=== PATIENT | female | born 1930 | race Caucasian/White ===

== ENCOUNTER 2016-11-04 07:26 | Inpatient (IN) | payer OTHER, MEDICARE ==
[~2016-11-04] VITALS: Ht 152.4 cm; Wt 69.6 kg
[2016-11-04] VITALS (11 sets, daily range): BP systolic 82–157; BP diastolic 47–84; PULSE 80–118; TEMP 36.6–38.1; O2SAT 91–95; Ht 152.4 cm; Wt 69.6 kg
[~2016-11-04 07:26] MED LIST: ACET-1256 PO; ATEN50TA8 PO; CHOL100027 PO; COEN100C15 PO; FLUT0.15 NAE; LORA10TA44 PO; MECL25TA2 PO; MULT-506 PO; POLYSOL4 OP; PRLSR20 PO; PROB1TAB16 PO; PSYL58.611 PO; SIMV20TA2 PO
[2016-11-04] MEDS ORDERED: ONDANSETRON INJ 2 MG/ML 2 ML VIAL IV STA (07:43)
[2016-11-04] MEDS ORDERED: KETOROLAC TROMETHAMINE 30 MG/ML VIAL IV STA (07:43)
[2016-11-04] MEDS ORDERED: SODIUM CHLORIDE 0.9% 500ML 500 ML IV STA (07:43)
--- NOTE | 2016-11-04 07:44 | EMERGENCY ROOM VISIT NOTE ---
History Report prepared by Conrado: Almaz Callahan Under the Supervision of: Dr. Chapin Cotter M.D. First contact with patient: 07:28 Stated Complaint: NAUSEA History of Present Illness The patient is an 86 year old female who presents to the Emergency Room with complaints of persistent right flank pain that began around 0330 this morning. She currently rates her discomfort as a 6/10 in severity. The patient states that she has had kidney stones in the past and notes that her symptoms and discomfort feel similar today. She additionally associates nausea with her symptoms today. The patient denies taking anything for her symptoms today. She states that last week she was sick with a GI bug, noting that she had nausea , vomiting, and diarrhea, but has not felt ill since last week, until this morning. Source of History: patient Onset: 0330 this morning Position: other (right flank) Symptom Intensity: 6/10 Timing: other (persistent) Associated Symptoms: + nausea Review of Systems See HPI for pertinent positives & negatives. A total of 10 systems reviewed and were otherwise negative. Past Medical & Surgical Medical Problems: (1) Chronic pansinusitis (2) Essential hypertension (3) Hyperlipidemia (4) Renal and ureteric calculus (5) Senile osteoporosis (6) Snoring Surgical Problems: (1) H/O lithotripsy (2) History of tonsillectomy and adenoidectomy Family History Hypertension Kidney disease Kidney stones Social History Smoking Status: Never Smoker Alcohol Use: none Marital Status: Occupation Status: other Current/Historical Medications Scheduled Atenolol (Tenormin), 25 MG PO DAILY Meclizine Hcl (Antivert), 25 MG PO TID PRN Omeprazole (Prilosec), 20 MG PO DAILY Simvastatin (Zocor), 20 MG PO QPM Allergies Coded Allergies: Amoxicillin (Verified Adverse Reaction, Unknown, nauseated, 11/04/16) Clavulanic Acid (Verified Adverse Reaction, Unknown, nauseated, 11/04/16) Clindamycin (Verified Adverse Reaction, Unknown, GI SYMPTOMS, 11/04/16) Physical Exam Vital Signs Date Time Temp Pulse Resp B/P Pulse Ox O2 Delivery O2 Flow Rate FiO2 11/04/16 08:42 82 24 159/67 95 Room Air 11/04/16 08:15 77 11/04/16 07:34 37.0 93 18 161/89 96 Room Air Physical Exam GENERAL: Patient is a healthy-appearing well-nourished HEAD: Normocephalic atraumatic EYES: Ocular movements intact pupils equal and react to light OROPHARYNX mucous membranes are moist no exudates present no erythema or edema present NECK: Supple no nuchal rigidity CHEST: Good equal expansion LUNGS: Clear and equal to auscultation CARDIAC: Normal S1 and S2 ABDOMEN: Soft nontender no guarding BACK: No CVA tenderness EXTREMITIES: No pain upon palpation normal muscle strength in all groups no clubbing cyanosis or edema NEURO: Patient is following commands is answering questions appropriately. Alert and oriented x3 Cranial Nerves 2-12 grossly intact Medical Decision & Procedures ER Provider Diagnostic Interpretation: CT results as stated below per my review and radiologist interpretation: ABDOMEN AND PELVIS CT WITHOUT CONTRAST CT DOSE: 657.63 mGy.cm HISTORY: Pt c/o Rt sided flank pain TECHNIQUE: Multiaxial CT images of the abdomen and pelvis were performed without the use of intravenous and oral contrast according to the standard department stone protocol. COMPARISON STUDY: Abdomen and pelvis CT 05/04/2012. FINDINGS: Punctate calcified granuloma within the right lung base. Left basilar linear densities favor subsegmental atelectasis. There is a small hiatus hernia. No suspicious lytic or blastic osseous lesions. The unenhanced liver, gallbladder, adrenal glands are unremarkable. Stable 6 mm hypodense lesion within the body of the pancreas. 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 Multiple calcified splenic granulomas. Mild bladder wall thickening is likely due to underdistention. The uterus and adnexa are unremarkable. Small fat-containing bilateral inguinal hernias. Moderate well-formed stool within the rectum. Colonic diverticulosis. No definite bowel wall thickening or obstruction. There is a 7 mm obstructing stone within the distal right ureter on image 119. This results in moderate to severe right-sided hydroureteronephrosis. There is also right perinephric edema. Multiple bilateral renal calculi. No left-sided hydronephrosis. IMPRESSION: 1. A 7 mm obstructing stone within the distal right ureter resulting in moderate to severe right-sided hydroureteronephrosis. There is associated right perinephric edema. 2. Bilateral nephrolithiasis. 3. Additional findings as described above. Electronically signed by: Paramjit Griffin M.D. 11/04/2016 8:47 AM Laboratory Results 11/04/16 07:40 Red Blood Count 5.66, Mean Corpuscular Volume 87.5, Mean Corpuscular Hemoglobin 29.9, Mean Corpuscular Hemoglobin Concent 34.1, Mean Platelet Volume 10.3, Neutrophils (%) (Auto) 87.5, Lymphocytes (%) (Auto) 5.4, Monocytes (%) (Auto) 6.2, Eosinophils (%) (Auto) 0.2, Basophils (%) (Auto) 0.2, Neutrophils # (Auto) 22.29, Lymphocytes # (Auto) 1.39, Monocytes # (Auto) 1.59, Eosinophils # (Auto) 0.05, Basophils # (Auto) 0.05 11/04/16 07:40 Test 11/04/16 07:30 11/04/16 07:40 Urine Color YELLOW Urine Appearance CLOUDY (CLEAR) Urine pH 6.0 (4.5-7.5) Urine Specific [place] 1.014 (1.000-1.030) Urine Protein TRACE (NEG) Urine Glucose (UA) NEG (NEG) Urine Ketones NEG (NEG) Urine Occult Blood 1+ (NEG) Urine Nitrite POS (NEG) Urine Bilirubin NEG (NEG) Urine Urobilinogen NEG (NEG) Urine Leukocyte Esterase LARGE (NEG) Urine WBC (Auto) /hpf (0-5) Urine RBC (Auto) /hpf (0-4) Urine Hyaline Casts (Auto) /lpf (0-5) Urine Epithelial Cells (Auto) /lpf (0-5) Urine Bacteria (Auto) (NEG) Urine RBC 0-4 /hpf (0-4) Urine WBC >30 /hpf (0-5) Urine Epithelial Cells >30 /lpf (0-5) Urine Crystals (NONE PRSENT) Urine Calcium Oxalate Crystals PRESENT (NONE PRSENT) Urine Bacteria 3+ (NEG) White Blood Count 25.51 K/uL (4.8-10.8) Red Blood Count 5.66 M/uL (4.2-5.4) Hemoglobin 16.9 g/dL (12.0-16.0) Hematocrit 49.5 % (37-47) Mean Corpuscular Volume 87.5 fL (80-100) Mean Corpuscular Hemoglobin 29.9 pg (25-34) Mean Corpuscular Hemoglobin Concent 34.1 g/dl (32-36) Platelet Count 312 K/uL (130-400) Mean Platelet Volume 10.3 fL (7.4-10.4) Neutrophils (%) (Auto) 87.5 % Lymphocytes (%) (Auto) 5.4 % Monocytes (%) (Auto) 6.2 % Eosinophils (%) (Auto) 0.2 % Basophils (%) (Auto) 0.2 % Neutrophils # (Auto) 22.29 K/uL (1.4-6.5) Lymphocytes # (Auto) 1.39 K/uL (1.2-3.4) Monocytes # (Auto) 1.59 K/uL (0.11-0.59) Eosinophils # (Auto) 0.05 K/uL (0-0.5) Basophils # (Auto) 0.05 K/uL (0-0.2) RDW Standard Deviation 45.4 fL (36.4-46.3) RDW Coefficient of Variation 14.2 % (11.5-14.5) Immature Granulocyte % (Auto) 0.5 % Immature Granulocyte # (Auto) 0.14 K/uL (0.00-0.02) Erythrocyte Sedimentation Rate 12 mm/hr (0-21) Prothrombin Time 10.7 SECONDS (9.0-12.0) Prothromb Time International Ratio 1.0 (0.9-1.1) Anion Gap 11.0 mmol/L (3-11) Est Creatinine Clear Calc Drug Dose 34.3 ml/min Estimated GFR () 59.1 Estimated GFR (Non- 51.0 BUN/Creatinine Ratio 16.1 (10-20) Calcium Level 9.8 mg/dl (8.5-10.1) Total Bilirubin 0.8 mg/dl (0.2-1) Direct Bilirubin 0.1 mg/dl (0-0.2) Aspartate Amino Transf (AST/SGOT) 19 U/L (15-37) Alanine Aminotransferase (ALT/SGPT) 27 U/L (12-78) Alkaline Phosphatase 84 U/L (45-117) Troponin I < 0.015 ng/ml (0-0.045) C-Reactive Protein < 0.29 mg/dl (0-0.29) Total Protein 7.2 gm/dl (6.4-8.2) Albumin 3.7 gm/dl (3.4-5.0) Lipase 401 U/L (73-393) Labs reviewed by ED physician. Medications Administered Medications (Trade) Dose Ordered Sig/Davida Route Start Time Stop Time Status Last Admin Dose Admin Sodium Chloride (Nss 500ml) 500 ml @ 999 mls/hr Q31M STAT IV 11/04/16 07:43 11/04/16 08:13 DC 11/04/16 07:57 999 MLS/HR Ketorolac Tromethamine (Toradol Inj) 15 mg NOW STAT IV 11/04/16 07:43 11/04/16 07:46 DC 11/04/16 07:56 15 MG Ondansetron HCl (Zofran Inj) 4 mg NOW STAT IV 11/04/16 07:43 11/04/16 07:46 DC 11/04/16 07:56 4 MG Acetaminophen/ Hydrocodone Bitart ([place]ucker 5/325 Tab) 1 tab NOW STAT PO 11/04/16 07:46 11/04/16 07:47 DC 11/04/16 07:56 1 TAB Potassium Chloride (Georgina Ciel Elix) 80 meq NOW STAT PO 11/04/16 08:14 11/04/16 08:16 DC 11/04/16 08:37 80 MEQ Metoclopramide HCl (Reglan Inj) 10 mg NOW STAT IV 11/04/16 08:14 11/04/16 08:16 DC 11/04/16 08:37 10 MG Tamsulosin HCl (Flomax Cap) 0.4 mg NOW STAT PO 11/04/16 08:54 11/04/16 08:55 DC 11/04/16 09:07 0.4 MG Ceftriaxone Sodium (Rocephin Inj) 1 gm NOW STAT IV 11/04/16 08:56 11/04/16 08:57 DC 11/04/16 09:07 1 GM ECG Indication: other (nausea, flank pain) Rate (beats per minute): 88 Rhythm: normal sinus Findings: no acute ischemic change, no ectopy, other (Old inferior infarct) ED Course 0739: Past medical records reviewed. The patient was evaluated in room B2. A complete history and physical examination was performed. 0743: Ordered Zofran Inj 4 mg IV, Toradol Inj 15 mg IV, Sodium Chloride 500 ml @ 999 mls/hr IV. 0746: Ordered Tucker 5/325 Tab PO. 0814: Ordered Reglan Inj 10 mg IV, Potassium Chloride 80 meq PO. 0854: Ordered Flomax Cap 0.4 mg PO. 0856: Ordered Rocephin Inj 1 gm IV. 09: I reevaluated the patient and she is resting comfortably. I discussed the exam findings with her and I discussed the treatment plan. She verbalized complete understanding and agreement. She will be evaluated for further treatment. 913: I discussed the patients case with Amber Adam. He is going to evaluate the patient for further treatment. Medical Decision Differential diagnosis: Etiologies such as appendicitis, diverticulitis, PUD, biliary pathology, UTI, pancreatitis, obstruction, mesenteric ischemia, aortic pathology, infections, inflammatory bowel disease, renal colic, as well as others were entertained. This is an 86-year-old female who presents emergency department complaining of sudden onset of right flank pain. The patient has a history of kidney stones in the past. Due to the nature the patient's complaints an IV was established, patient given normal saline bolus. The patient does have a very large elevation in her white blood count at 25 in addition has a large amount of white blood cells in her urine. Given the patient's age I'm concerned that the stone may be infected and for this reason she was started on Rocephin as well as fluids in the emergency department. The patient does not feel well enough to be discharged home case was discussed with the hospitalist group who agreed to admit the patient. Patient was in agreement with the treatment plan. Consults Time Called: 909 Consulting Physician: Amber Adam Returned Call: 913 I discussed the patients case with Amber Adam. He is going to evaluate the patient for further treatment. Impression Primary Impression: Kidney stone Scribe Attestation The scribe's documentation has been prepared under my direction and personally reviewed by me in its entirety. I confirm that the note above accurately reflects all work, treatment, procedures, and medical decision making performed by me. Departure Information Dispostion Being Evaluated By Hospitalist Referrals Amador Friedman M.D. (PCP)
[2016-11-04] MEDS ORDERED: HYDROCODONE/ACETAMOPHEN 5/325MG TAB PO STA (07:46)
[2016-11-04 07:55] LABS: HEMATOCRIT 49.5 % (37-47); MEAN CELL VOLUME 87.5 fL (80-100); MEAN CORPUSCULAR HEMOGLOBIN 29.9 pg (25-34); MEAN CORPUSCULAR HGB CONC 34.1 g/dl (32-36); MEAN PLATELET VOLUME 10.3 fL (7.4-10.4); PLATELET COUNT 312 K/uL (130-400); RED BLOOD COUNT 5.66 M/uL (4.2-5.4); WHITE BLOOD COUNT 25.51 K/uL (4.8-10.8)
[2016-11-04 08:12] LABS: BLOOD UREA NITROGEN 16 mg/dl (7-18); GLUCOSE 128 mg/dl (70-99)
[2016-11-04 08:13] LABS: ALT/SGPT 27 U/L (12-78); AST/SGOT 19 U/L (15-37); BUN/CREATININE RATIO 16.1 (10-20); CALCIUM 9.8 mg/dl (8.5-10.1); CARBON DIOXIDE 26 mmol/L (21-32); CHLORIDE 108 mmol/L (98-107); POTASSIUM 2.8 mmol/L (3.5-5.1); SODIUM 145 mmol/L (136-145)
[2016-11-04] MEDS ORDERED: METOCLOPRAMIDE HCL INJ 5 MG/ML 2 ML VIAL IV STA (08:14)
[2016-11-04] MEDS ORDERED: POTASSIUM CHLORIDE 20 MEQ/15 ML UDC PO STA (08:14)
[2016-11-04 08:17] LABS: ALKALINE PHOSPHATASE 84 U/L (45-117); BASO % 0.2 %; BASO ABS # 0.05 K/uL (0-0.2); COMPLETE YES; EOS % 0.2 %; IG% 0.5 %; LYMPH % 5.4 %; LYMPH ABS # 1.39 K/uL (1.2-3.4); MONO % 6.2 %; NEUT % 87.5 %
[2016-11-04 08:31] LABS: URINE APPEARANCE CLOUDY (CLEAR); URINE BILIRUBIN NEG (NEG); URINE COLOR YELLOW; URINE NITRITE POS (NEG); URINE SPECIFIC GRAVITY 1.014 (1.000-1.030); UROBILINOGEN NEG (NEG)
[2016-11-04 08:34] LABS: MANUAL MICROSCOPIC REQUIRED? YES; REVIEW REQ? NO
--- NOTE | 2016-11-04 08:48 | DIAGNOSTIC IMAGING REPORT ---
ABDOMEN AND PELVIS CT WITHOUT CONTRAST CT DOSE: 657.63 mGy.cm HISTORY: Pt c/o Rt sided flank pain TECHNIQUE: Multiaxial CT images of the abdomen and pelvis were performed without the use of intravenous and oral contrast according to the standard department stone protocol. COMPARISON STUDY: Abdomen and pelvis CT 05/04/2012. FINDINGS: Punctate calcified granuloma within the right lung base. Left basilar linear densities favor subsegmental atelectasis. There is a small hiatus hernia. No suspicious lytic or blastic osseous lesions. The unenhanced liver, gallbladder, adrenal glands are unremarkable. Stable 6 mm hypodense lesion within the body of the pancreas. 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 Multiple calcified splenic granulomas. Mild bladder wall thickening is likely due to underdistention. The uterus and adnexa are unremarkable. Small fat-containing bilateral inguinal hernias. Moderate well-formed stool within the rectum. Colonic diverticulosis. No definite bowel wall thickening or obstruction. There is a 7 mm obstructing stone within the distal right ureter on image 119. This results in moderate to severe right-sided hydroureteronephrosis. There is also right perinephric edema. Multiple bilateral renal calculi. No left-sided hydronephrosis. IMPRESSION: 1. A 7 mm obstructing stone within the distal right ureter resulting in moderate to severe right-sided hydroureteronephrosis. There is associated right perinephric edema. 2. Bilateral nephrolithiasis. 3. Additional findings as described above. Electronically signed by: Paramjit Griffin M.D. 11/04/2016 8:47 AM
[2016-11-04] MEDS ORDERED: TAMSULOSIN HCL 0.4 MG CAP PO STA (08:54)
[2016-11-04] MEDS ORDERED: CEFTRIAXONE SOD INJ 1 GM ADDVIAL IV STA (08:56)
[2016-11-04 09:04] LABS: URINE RBC 0-4 /hpf (0-4); URINE WBC >30 /hpf (0-5)
[2016-11-04 09:05] LABS: URINE BACTERIA 3+ (NEG)
[2016-11-04] MEDS ORDERED: HYDROCODONE/ACETAMI 10/325 TAB PO PRN ×2 (09:30)
[2016-11-04 09:38] LABS: PROTHROMBIN TIME (PATIENT) 10.7 SECONDS (9.0-12.0)
[2016-11-04] MEDS ORDERED: KETOROLAC TROMETHAMINE 15 MG/ML VIAL IV PRN (09:45)
[2016-11-04] MEDS ORDERED: ACETAMINOPHEN 325 MG TAB PO PRN (09:45)
[2016-11-04] MEDS ORDERED: MAGNESIUM HYDROXIDE SUSP 30 ML UDC PO PRN (09:45)
[2016-11-04] MEDS ORDERED: ONDANSETRON INJ 2 MG/ML 2 ML VIAL IV PRN ×2 (09:45→14:00)
[2016-11-04] MEDS ORDERED: ALUMINUM/MAGNESIUM/SIMETH (MAALOX MAX) 30 ML UDC PO PRN (09:45)
[2016-11-04] MEDS ORDERED: POLYETHYLENE (MIRALAX) 17 GM PACK PO PRN ×2 (09:45→14:30)
--- NOTE | 2016-11-04 10:42 | DIAGNOSTIC IMAGING REPORT ---
Right upper quadrant ultrasound (LIVER) ABDOMEN LIMITED CLINICAL HISTORY: elevated lipase , nausea pain. Nausea. TECHNIQUE: Ultrasound COMPARISON STUDY: CT study dated 11/04/2016 FINDINGS: Fatty infiltration of liver.. Mild prominence of the common bile duct at 9 mm. Intrahepatic ducts are unremarkable. Gallbladder appears unremarkable. Right renal hydronephrosis with associated calcifications which have been described previously. IMPRESSION: 1. Mild prominence common bile duct at 9 mm. 2. Fatty infiltration of the liver. 3. Right renal hydronephrosis. 4. Normal gallbladder. Electronically signed by: Amador Mancilla M.D. 11/04/2016 10:40 AM
--- NOTE | 2016-11-04 10:48 | History and Physical ---
History & Physical Date & Time of Service: Nov 04, 2016 at 10:03 Chief Complaint: Nausea Primary Care Physician: Merlyn Ward D.O. History of Present Illness Source: patient This is an 86 y/o female with PMHx of HTN, Dyslipidemia and other problems as outlined below who presents to the ED c/o R flank pain that began early this morning. Pt reports that she woke up around 0330 with R flank pain that she describes as constant 6/10 pain that radiates to the R groin. Her sxs are assoc with mild nausea. She mentions she had a GI bug last week with N/V and diarrhea however she her sxs resolved over a week ago. She has a history of kidney stones requiring lithotripsy in the past. Pt denies fever/chills, diaphoresis, chest pain, palpitations, SOB, wheezing, abd pain, vomiting, constipation, diarrhea, dysuria, hematuria, urinary frequency, LE edema ,calf pain, lightheadedness/dizziness. In the ED, vitals are stable. Pt is afebrile with leukocytosis >25k. K+ 2.9. lipase 400. UA 3+ bacteria, + nitrites and + blood. CT abd/pelvis + obstructing 7mm calculi in distal R ureter with resulting mod- severe hydroureteronephrosis. Pt received IVF and IV abx in the ED. She appears hemodynamically stable. She will be admitted for further evaluation and treatment. Past Medical/Surgical History Medical Problems: (1) Chronic pansinusitis Status: Chronic (2) Essential hypertension Status: Chronic (3) Hyperlipidemia Status: Chronic (4) Senile osteoporosis Status: Chronic (5) Snoring Status: Chronic Surgical Problems: (1) H/O lithotripsy Status: Resolved (2) History of tonsillectomy and adenoidectomy Status: Resolved Family History Hypertension Kidney disease Kidney stones Social History Smoking Status: Never Smoker Alcohol Use: none Drug Use: none Marital Status: Housing status: lives alone Occupational Status: other Immunizations History of Influenza Vaccine: Yes History of Tetanus Vaccine?: Yes History of Pneumococcal: Yes History of Hepatitis B Vaccine: No Multi-Drug Resistant Organisms History of MDRO: No Allergies Coded Allergies: Amoxicillin (Verified Adverse Reaction, Unknown, nauseated, 11/04/16) Clavulanic Acid (Verified Adverse Reaction, Unknown, nauseated, 11/04/16) Clindamycin (Verified Adverse Reaction, Unknown, GI SYMPTOMS, 11/04/16) Home Medications Scheduled Atenolol (Tenormin), 25 MG PO DAILY Meclizine Hcl (Antivert), 25 MG PO TID PRN Omeprazole (Prilosec), 20 MG PO DAILY Simvastatin (Zocor), 20 MG PO QPM Review of Systems Constitutional: No chills, No fatigue, No fever, No sweats, No weakness Eyes: No worsening of vision Respiratory: No cough, No shortness of breath Cardiovascular: No chest pain, No claudication, No edema, No palpitations Abdomen: + nausea, + problem reported (R flank pain), No GI bleeding, No constipation, No diarrhea, No pain, No vomiting Musculoskeletal: No calf pain, No swelling Genitourinary - Female: No dysuria, No urinary frequency, No urinary incontinence, No urinary urgency Neurologic: No weakness Psychiatric: No depression symptoms Endocrine: No fatigue Hematologic / Lymphatic: No abnormal bleeding/bruising Integumentary: No new/changing skin lesions Physical Exam Vital Signs Date Time Temp Pulse Resp B/P Pulse Ox O2 Delivery O2 Flow Rate FiO2 11/04/16 09:56 95 Room Air 11/04/16 08:42 82 24 159/67 95 Room Air 11/04/16 08:15 77 11/04/16 07:34 37.0 93 18 161/89 96 Room Air General Appearance: WD/WN, no apparent distress, + pertinent finding (Pt is laying in bed with son-in-law at bedside ) Head: normocephalic, atraumatic Eyes: normal inspection ENT: hearing grossly normal Neck: supple Respiratory/Chest: chest non-tender, lungs clear, normal breath sounds, no respiratory distress Cardiovascular: regular rate, rhythm, no edema, no murmur Abdomen/GI: normal bowel sounds, non tender, soft Back: + right CVA tenderness Extremities/Musculoskelatal: normal inspection, no calf tenderness, no pedal edema Neurologic/Psych: alert, normal mood/affect, oriented x 3 Skin: normal color, warm/dry Diagnostics Laboratory Results Results Past 24 Hours Test 11/04/16 07:30 11/04/16 07:40 11/04/16 09:50 Range/Units Urine Color YELLOW Urine Appearance CLOUDY CLEAR Urine pH 6.0 4.5-7.5 Urine Specific [place] 1.014 1.000-1.030 Urine Protein TRACE NEG Urine Glucose (UA) NEG NEG Urine Ketones NEG NEG Urine Occult Blood 1+ NEG Urine Nitrite POS NEG Urine Bilirubin NEG NEG Urine Urobilinogen NEG NEG Urine Leukocyte Esterase LARGE NEG Urine WBC (Auto) 0-5 /hpf Urine RBC (Auto) 0-4 /hpf Urine Hyaline Casts (Auto) 0-5 /lpf Urine Epithelial Cells (Auto) 0-5 /lpf Urine Bacteria (Auto) NEG Urine RBC 0-4 0-4 /hpf Urine WBC >30 0-5 /hpf Urine Epithelial Cells >30 0-5 /lpf Urine Crystals NONE PRSENT Urine Calcium Oxalate Crystals PRESENT NONE PRSENT Urine Bacteria 3+ NEG White Blood Count 25.51 4.8-10.8 K/uL Red Blood Count 5.66 4.2-5.4 M/uL Hemoglobin 16.9 12.0-16.0 g/dL Hematocrit 49.5 37-47 % Mean Corpuscular Volume 87.5 80-100 fL Mean Corpuscular Hemoglobin 29.9 25-34 pg Mean Corpuscular Hemoglobin Concent 34.1 32-36 g/dl Platelet Count 312 130-400 K/uL Mean Platelet Volume 10.3 7.4-10.4 fL Neutrophils (%) (Auto) 87.5 % Lymphocytes (%) (Auto) 5.4 % Monocytes (%) (Auto) 6.2 % Eosinophils (%) (Auto) 0.2 % Basophils (%) (Auto) 0.2 % Neutrophils # (Auto) 22.29 1.4-6.5 K/uL Lymphocytes # (Auto) 1.39 1.2-3.4 K/uL Monocytes # (Auto) 1.59 0.11-0.59 K/uL Eosinophils # (Auto) 0.05 0-0.5 K/uL Basophils # (Auto) 0.05 0-0.2 K/uL RDW Standard Deviation 45.4 36.4-46.3 fL RDW Coefficient of Variation 14.2 11.5-14.5 % Immature Granulocyte % (Auto) 0.5 % Immature Granulocyte # (Auto) 0.14 0.00-0.02 K/uL Erythrocyte Sedimentation Rate 12 0-21 mm/hr Prothrombin Time 10.7 9.0-12.0 SECONDS Prothromb Time International Ratio 1.0 0.9-1.1 Sodium Level 145 136-145 mmol/L Potassium Level 2.8 3.5-5.1 mmol/L Chloride Level 108 98-107 mmol/L Carbon Dioxide Level 26 21-32 mmol/L Anion Gap 11.0 3-11 mmol/L Blood Urea Nitrogen 16 7-18 mg/dl Creatinine 1.00 0.60-1.20 mg/dl Est Creatinine Clear Calc Drug Dose 34.3 ml/min Estimated GFR () 59.1 Estimated GFR (Non- 51.0 BUN/Creatinine Ratio 16.1 10-20 Random Glucose 128 70-99 mg/dl Calcium Level 9.8 8.5-10.1 mg/dl Total Bilirubin 0.8 0.2-1 mg/dl Direct Bilirubin 0.1 0-0.2 mg/dl Aspartate Amino Transf (AST/SGOT) 19 15-37 U/L Alanine Aminotransferase (ALT/SGPT) 27 12-78 U/L Alkaline Phosphatase 84 45-117 U/L Troponin I < 0.015 0-0.045 ng/ml C-Reactive Protein < 0.29 0-0.29 mg/dl Total Protein 7.2 6.4-8.2 gm/dl Albumin 3.7 3.4-5.0 gm/dl Lipase 401 73-393 U/L Microbiology Results 11/04/16 Blood Culture, Received Pending 11/04/16 Blood Culture, Received Pending Diagnostic Radiology CT ABD/PELVIS IMPRESSION: 1. A 7 mm obstructing stone within the distal right ureter resulting in moderate to severe right-sided hydroureteronephrosis. There is associated right perinephric edema. 2. Bilateral nephrolithiasis. 3. Additional findings as described above EKG EKG: NSR at 88 bpm with no acute ischemic changes; no significant change when compared to EKG from 07/28/16 Impression Assessment and Plan OBSTRUCTING DISTAL R URETERAL CALCULI CAUSING HYDRONEPHROSIS pt presents with R flank pain assoc with mild nausea -admit to med/surg -pt is afebrile with leukocytosis >25k -CT abd/pelvis + obstructing 7mm calculi in distal R ureter with resulting mod- severe hydroureteronephrosis -UA 3+ bacteria, + nitrites and + blood -blood and urine cx-pending -check lactic acid, ESR and CRP -start IVF, Flomax and IV Rocephin -[place] PRN pain -strain urine -keep NPO for possible procedure -consult nephro, Dr. Mosquera-pending input -appears hemodynamically stable -monitor HYPOKALEMIA -K+ 2.9; ? if due to dehydration from recent GI illness -potassium given in ED -check stool for C.diff -monitor closely with prp MILDLY ELEVATED LIPASE -lipase 400 -LFTs WNL -obtain RUQ US -monitor daily HTN -BP slightly elevated; pt did not take medicine this morning -cont atenolol -monitor DYSLIPIDEMIA -hold statin due to elevated lipase DVT PROPHYLAXIS -SCDs only due to possible procedure CODE STATUS -DNR per discussion with patient upon admission. Patient has an advanced directive DISPO -Pt seen in collaboration with Dr. Lara. Please see her addendum for further details. Thanks! ATTENDING ADDENDUM : pt seen and examined, in agreement with above H&P 86 YO f admitted today with rt sided renal colic /flank pain started around 3 am today In the ED, vitals are stable. Pt is afebrile with leukocytosis >25k. K+ 2.9. lipase 400. UA 3+ bacteria, + nitrites and + blood. CT abd/pelvis + obstructing 7mm calculi in distal R ureter with resulting mod-severe hydroureteronephrosis. pt was taken to OR by Urology had ureteroscopy s/p rt sided ureteric stent placement per Operative note -had obstructive uropathy , cloudy urine after stent placement pt seen in room 285 -1 after returning form the ureteric stent procedure feels fine , rt flank pain has resolved, remains tachycardic , felt very weak and lightheaded while trying to go to bathroom no spiking of temp P/E: gen : elderly female, appears to be younger than her stated age , no apparent distress HEENT: sclera non icteric , PERRLA/EOMI Neck : no thyromegaly , trachea midline lungs : CTA abdomen: soft, non tender, minimum rt flank tenderness EXt : no rash or deformity neuro: no focal deficit A/P : severe sepsis: due to obstructed rt ureteric stone /UTI /pyelonephritis meet criteria -marked leukocytosis, tachycardia, elevated lactic acid -admitted to Tele abx per Sepsis protocol IV Azactam ( pt is allergic to amoxicillin -causes nausea /wants to avoid PCN ) /Vancomycin Urine , blood culture ordered IVF resuscitation lactic acid will be followed q 6hrs per sepsis protocol ID priscilla requested appreciate Urology help s/p rt ureteric stent placement for obstructed uropathy MARKED LEUKOCYTOSIS : possible due to above -UTi . infected ureteric stone need to R/o GI source stool for C diff ordered ( reports of diarrhea few days back ) no cough symptom , Cxray no evidence of pneumonia IV fluid increased to 150 ml /hr monitor in Tele daily CBC to be followed code status : DNR /DNI Level of Care Telemetry Advanced Directives Existing Advance Directive: Yes Existing Living Will: Yes Existing Power of Web Press Operator Assistant: Yes Resuscitation Status DO NOT RESUSCITATE VTE Prophylaxis VTE Risk Assessment Done? Y/N: Yes Risk Level: Moderate Given or contraindicated: T.E.D. Stockings, SCD's
--- NOTE | 2016-11-04 11:40 | Progress Note ---
Progress Note ATTENDING NOTE : 86 YO f admitted today with rt sided renal colic /flank pain started around 3 am today In the ED, vitals are stable. Pt is afebrile with leukocytosis >25k. K+ 2.9. lipase 400. UA 3+ bacteria, + nitrites and + blood. CT abd/pelvis + obstructing 7mm calculi in distal R ureter with resulting mod-severe hydroureteronephrosis. Lactic acid level elevated > 3 drawn at 10 am normal C reactive protein , ESR possible due to dehydration , pt reports of diarrhea few days back sepsis -due to possible UTI /obstructed uropathy ; need to R/o GI source stool for C diff ordered IV fluid increased to 150 ml /hr repeat lactic acid level in 6 hrs ( at 1600 ) cont to monitor pt will be upgraded to tele
[2016-11-04] MEDS: SODIUM CHLORIDE 0.9% 1000ML 1,000 ML IV SCH ×2 (12:16→19:39)
[2016-11-04] MEDS ORDERED: DEXAMETHASONE SOD INJ 4 MG/ML VIAL ONE (13:43)
[2016-11-04] MEDS ORDERED: LIDOCAINE HCL 2% 2 ML VIAL (20MG/ML) ONE (13:43)
[2016-11-04] MEDS ORDERED: ONDANSETRON INJ 2 MG/ML 2 ML VIAL ONE (13:43)
[2016-11-04] MEDS ORDERED: PROPOFOL IV EMULSION 10 MG/ML 20 ML VIAL IV ONE (13:43)
[2016-11-04] MEDS ORDERED: FENTANYL CITRATE INJ 50 MCG/1 ML 2 ML VIAL ONE (13:43)
[2016-11-04] MEDS ORDERED: MIDAZOLAM HCL 1 MG/ML 2ML VIAL ONE (13:43)
[2016-11-04] MEDS ORDERED: FENTANYL CITRATE INJ 50 MCG/1 ML 2 ML VIAL IV PRN (14:00)
[2016-11-04] MEDS ORDERED: MECLIZINE HCL 25 MG TAB PO PRN (14:00)
[2016-11-04] MEDS ORDERED: EpHEDrine SULFATE INJ 50 MG/ML AMP IV PRN (14:00)
[2016-11-04] MEDS ORDERED: ATROPINE SULFATE 0.1 MG/ML 5ML SYR IV PRN (14:00)
[2016-11-04] MEDS ORDERED: METOPROLOL TARTRATE 1 MG/ML VIAL ONE (14:05)
--- NOTE | 2016-11-04 14:47 | Urology Consultation ---
History General Date of Service: Nov 04, 2016. Chief Complaint: uti and obstructing righ tureteral stone Primary Care Physician: Merlyn Ward D.O. Pt seen a urologist before?: Yes If yes, why?: stone History of Present Illness I am asked by Yuni Espino and Dr Jose Alfredo Toth to evaluate and kevin patient for stone. She is admitted via ER with uti, high white count, and 11mm right distal stone with lots of stranding around kidney. She has a lactic acidosis as well. She is not febrile. She had ceftriaxone at 9am I have done stone surgery on her in past. Imaging Imaging: CT Laboratory Results Past 24 Hours Test 11/04/16 07:30 11/04/16 07:40 11/04/16 09:50 Range/Units Urine Color YELLOW Urine Appearance CLOUDY CLEAR Urine pH 6.0 4.5-7.5 Urine Specific [place] 1.014 1.000-1.030 Urine Protein TRACE NEG Urine Glucose (UA) NEG NEG Urine Ketones NEG NEG Urine Occult Blood 1+ NEG Urine Nitrite POS NEG Urine Bilirubin NEG NEG Urine Urobilinogen NEG NEG Urine Leukocyte Esterase LARGE NEG Urine WBC (Auto) 0-5 /hpf Urine RBC (Auto) 0-4 /hpf Urine Hyaline Casts (Auto) 0-5 /lpf Urine Epithelial Cells (Auto) 0-5 /lpf Urine Bacteria (Auto) NEG Urine RBC 0-4 0-4 /hpf Urine WBC >30 0-5 /hpf Urine Epithelial Cells >30 0-5 /lpf Urine Crystals NONE PRSENT Urine Calcium Oxalate Crystals PRESENT NONE PRSENT Urine Bacteria 3+ NEG White Blood Count 25.51 4.8-10.8 K/uL Red Blood Count 5.66 4.2-5.4 M/uL Hemoglobin 16.9 12.0-16.0 g/dL Hematocrit 49.5 37-47 % Mean Corpuscular Volume 87.5 80-100 fL Mean Corpuscular Hemoglobin 29.9 25-34 pg Mean Corpuscular Hemoglobin Concent 34.1 32-36 g/dl Platelet Count 312 130-400 K/uL Mean Platelet Volume 10.3 7.4-10.4 fL Neutrophils (%) (Auto) 87.5 % Lymphocytes (%) (Auto) 5.4 % Monocytes (%) (Auto) 6.2 % Eosinophils (%) (Auto) 0.2 % Basophils (%) (Auto) 0.2 % Neutrophils # (Auto) 22.29 1.4-6.5 K/uL Lymphocytes # (Auto) 1.39 1.2-3.4 K/uL Monocytes # (Auto) 1.59 0.11-0.59 K/uL Eosinophils # (Auto) 0.05 0-0.5 K/uL Basophils # (Auto) 0.05 0-0.2 K/uL RDW Standard Deviation 45.4 36.4-46.3 fL RDW Coefficient of Variation 14.2 11.5-14.5 % Immature Granulocyte % (Auto) 0.5 % Immature Granulocyte # (Auto) 0.14 0.00-0.02 K/uL Erythrocyte Sedimentation Rate 12 0-21 mm/hr Prothrombin Time 10.7 9.0-12.0 SECONDS Prothromb Time International Ratio 1.0 0.9-1.1 Sodium Level 145 136-145 mmol/L Potassium Level 2.8 3.5-5.1 mmol/L Chloride Level 108 98-107 mmol/L Carbon Dioxide Level 26 21-32 mmol/L Anion Gap 11.0 3-11 mmol/L Blood Urea Nitrogen 16 7-18 mg/dl Creatinine 1.00 0.60-1.20 mg/dl Est Creatinine Clear Calc Drug Dose 34.3 ml/min Estimated GFR () 59.1 Estimated GFR (Non- 51.0 BUN/Creatinine Ratio 16.1 10-20 Random Glucose 128 70-99 mg/dl Calcium Level 9.8 8.5-10.1 mg/dl Total Bilirubin 0.8 0.2-1 mg/dl Direct Bilirubin 0.1 0-0.2 mg/dl Aspartate Amino Transf (AST/SGOT) 19 15-37 U/L Alanine Aminotransferase (ALT/SGPT) 27 12-78 U/L Alkaline Phosphatase 84 45-117 U/L Troponin I < 0.015 0-0.045 ng/ml C-Reactive Protein < 0.29 0-0.29 mg/dl Total Protein 7.2 6.4-8.2 gm/dl Albumin 3.7 3.4-5.0 gm/dl Lipase 401 73-393 U/L Lactic Acid Level 3.8 0.4-2.0 mmol/L Microbiology Results 11/04/16 Blood Culture, Received Pending 11/04/16 Blood Culture, Received Pending Labs were reviewed and are within normal limits unless listed below. Labs are available in the chart and at [facility] Problem List Medical Problems: (1) Kidney stone Status: Acute Past History high cholesterol, hypertension Past Surgical History: tonsillectomy Family History Hypertension Kidney disease Kidney stones Social History Hx Tobacco Use In Past Year?: No Smoking: non-smoker Alcohol: never Drug use: none Marital status: Housing status: lives alone Occupation status: other Immunizations History of Influenza Vaccine: Yes History of Tetanus Vaccine?: Yes History of Pneumococcal: Yes History of Hepatitis B Vaccine: No History of MDRO No Allergies Coded Allergies: Amoxicillin (Verified Adverse Reaction, Unknown, nauseated, 11/04/16) Clavulanic Acid (Verified Adverse Reaction, Unknown, nauseated, 11/04/16) Clindamycin (Verified Adverse Reaction, Unknown, GI SYMPTOMS, 11/04/16) Medications Home Medications: Home Meds and Scripts Medications Dose Route/Sig Max Daily Dose Days Date Category Dose Instructions Prilosec (Omeprazole) 20 Mg Capcr 20 Mg PO DAILY 07/28/16 Reported Antivert (Meclizine Hcl) 25 Mg Tab 25 Mg PO TID PRN 05/04/12 Reported NEEDED FOR DIZZINESS Zocor (Simvastatin) 20 Mg Tab 20 Mg PO QPM 04/12/10 Reported Tenormin (Atenolol) 50 Mg Tab 25 Mg PO DAILY 04/12/10 Reported Inpatient Medications: Current Inpatient Medications Medications (Trade) Dose Ordered Sig/Davida Route Start Time Stop Time Status Last Admin Dose Admin Ceftriaxone Sodium 1 gm/ Dextrose 50 ml @ 100 mls/hr Q24H IV 11/05/16 09:30 11/14/16 09:29 Sodium Chloride (Nss 1000ml) 1,000 ml @ 150 mls/hr Q6H40M IV 11/04/16 11:20 11/04/16 12:16 150 MLS/HR Tamsulosin HCl (Flomax Cap) 0.4 mg QAM PO 11/05/16 09:00 12/05/16 08:59 Acetaminophen/ Hydrocodone Bitart (Mcdavid 10/325 Tab) 1 tab Q4 PRN PO 11/04/16 09:30 11/18/16 09:29 Acetaminophen/ Hydrocodone Bitart (Mcdavid 10/325 Tab) 2 tab Q4 PRN PO 11/04/16 09:30 11/18/16 09:29 Ketorolac Tromethamine (Toradol Inj) 15 mg Q6H PRN IV 11/04/16 09:45 11/09/16 09:44 Acetaminophen (Tylenol Tab) 650 mg Q4H PRN PO 11/04/16 09:45 12/04/16 09:44 Al Hydrox/Mg Hydrox/Simethicone (Maalox Max Susp) 15 ml Q4H PRN PO 11/04/16 09:45 12/04/16 09:44 Magnesium Hydroxide (Milk Of Magnesia Susp) 30 ml Q6H PRN PO 11/04/16 09:45 12/04/16 09:44 Ondansetron HCl (Zofran Inj) 4 mg Q6H PRN IV 11/04/16 09:45 12/04/16 09:44 Meclizine HCl (Antivert Tab) 25 mg TID PRN PO 11/04/16 14:00 12/04/16 13:59 Pantoprazole Sodium (Protonix Tab) 40 mg DAILY PO 11/05/16 09:00 12/05/16 08:59 Atenolol (Tenormin Tab) 25 mg DAILY PO 11/05/16 09:00 12/05/16 08:59 Docusate Sodium (coLACE CAP) 100 mg DAILY PRN PO 11/05/16 09:00 12/05/16 08:59 Fentanyl Citrate (Fentanyl Inj) 25 mcg Q5M PRN IV 11/04/16 14:00 11/04/16 19:00 Ondansetron HCl (Zofran Inj) 4 mg ONE PRN IV 11/04/16 14:00 11/04/16 19:00 Ephedrine Sulfate (EpHEDrine SULFATE INJ) 5 mg Q5M PRN IV 11/04/16 14:00 11/04/16 19:00 Atropine Sulfate (Atropine Sulfate 0.1MG/Ml Inj) 0.5 mg Q1M PRN IV 11/04/16 14:00 11/04/16 19:00 Polyethylene (Miralax Powder Packet) 17 gm DAILY PRN PO 11/04/16 14:30 12/04/16 14:29 Review of Systems Review of Systems Constitutional: No chills, No fever, No frequent headaches, No weight loss Eyes: No blurred vision Neurological: No dizzy, No passing out Endocrine: + tired/sluggish, + too cold, + too hot Gastrointestinal: + abdominal pain, + diarrhea, + indigestion, + nausea, + vomiting, No constipation Cardiovascular: No chest pain, No palpitations, No swelling ankles/feet Respiratory: No chronic cough, No shortness of breath Female : + kidney stones, No blood in urine, No frequent urination, No infections, No painful urination, No urinary retention Physical Exam Vital Signs: Vital Signs Past 12 Hours Date Time Temp Pulse Resp B/P Pulse Ox O2 Delivery O2 Flow Rate FiO2 11/04/16 12:00 36.6 80 18 95 11/04/16 10:52 36.6 80 18 126/68 95 Room Air 11/04/16 10:14 78 24 131/49 96 11/04/16 09:56 95 Room Air 11/04/16 08:42 82 24 159/67 95 Room Air 11/04/16 08:15 77 11/04/16 07:34 37.0 93 18 161/89 96 Room Air Physical Exam: General Appearance: WD/WN, no apparent distress, + obese, + pertinent finding ( appears much younger than her stated age) ENT: hearing grossly normal Neck: no adenopathy Respiratory/Chest: normal breath sounds, no respiratory distress, no accessory muscle use Cardiovascular: regular rate, rhythm Gastrointestinal: Abdomen: normal abdomen Bladder: normal bladder Renal: normal renal Liver: normal liver Extremities: non-tender, normal inspection, no pedal edema, no calf tenderness Neurologic/Psychiatric: alert, normal mood/affect, oriented x 3 Skin: normal color, warm/dry, no rash Lymphatic: no adenopathy Assessment & Plan Assessment & Plan obstructing right distal ureteral stone suspect uti behind obstruction needs urgent stent I explained surgery and she signed consent
[2016-11-04] MEDS ORDERED: BELLADONNA/OPIUM SUPP 60 MG SUPP PR ONE ×2 (15:12→15:39)
--- NOTE | 2016-11-04 15:23 | [facility] Operative Report ---
Operative Report Operative Date Nov 04, 2016. Pre-Operative Diagnosis uti and obstructing right ureteral stone Post-Operative Diagnosis same Procedure(s) Performed cysto right stent Surgeon digna Supervisor Press Room Surgeon(s) none Estimated Blood Loss 0mL Findings radio-lucent distal ureteral stone, cloudy urine in bladder and right kidney Fluids 400mL Specimens urine for culture Drains 6 fr 24 centimeter double J stent Anesthesia iv sedation Complication(s) None none Disposition Recovery Room / PACU Indications leukocytosis, obstructing stone, uti, lactic acidosis Description of Procedure Patient was sedated and placed in lithotomy position. Her genitals were prepped and draped in sterile fashion. Time out held with team. I placed a 21 fr rigid cystoscope to bladder. The urethra is unremarkable. Urine is grossly purulent. The UOs are lateral. I placed a road runner wire up right ureter and placed a 24 centimeter 6 Fr double J stent easily. There is brisk very cloudy efflux after placement. I left bladder empty and concluded case. I placed a belladonna and opium suppository for post-op pain. She transferred to recovery under my escort, in stable condition. Plan: Home in 1-2 days on abt once stable Pyridium for dysuria x 3 days flomax daily if tolerated oral pain meds as needed to OR next week for stone removal surgery. ASA 3 clean contaminated case 3 seconds fluoro ceftriaxone antibiotic at 9am in ER I attest to the content of the Intraoperative Record and any orders documented therein. Any exceptions are noted below.
--- NOTE | 2016-11-04 15:31 | DIAGNOSTIC IMAGING REPORT ---
KUB HISTORY: RT CYSTO URETERAL STENT FLUOROSCOPY TIME: 3 seconds. FINDINGS: A single fluoroscopic spot image. There is a guidewire seen within the expected location of the right ureter. No additional images submitted. IMPRESSION: Fluoroscopy provided for right ureteral stent placement. Electronically signed by: Paramjit Griffin M.D. 11/04/2016 3:29 PM
--- NOTE | 2016-11-04 15:50 | Anesthesiology Progress Note ---
Anesthesia Post Op Note Date & Time Nov 04, 2016 at 15:50 Vital Signs Pain Intensity: 1 Vital Signs Past 12 Hours Date Time Temp Pulse Resp B/P Pulse Ox O2 Delivery O2 Flow Rate FiO2 11/04/16 15:40 37 84 16 151/64 95 Room Air 11/04/16 15:30 84 16 146/66 100 Mask 10 11/04/16 15:20 37 85 16 140/65 97 Mask 10 11/04/16 12:00 36.6 80 18 95 11/04/16 10:52 36.6 80 18 126/68 95 Room Air 11/04/16 10:14 78 24 131/49 96 11/04/16 09:56 95 Room Air 11/04/16 08:42 82 24 159/67 95 Room Air 11/04/16 08:15 77 11/04/16 07:34 37.0 93 18 161/89 96 Room Air Notes Mental Status: alert / awake / arousable, participated in evaluation Pt Amnestic to Procedure: Yes Nausea / Vomiting: adequately controlled Pain: adequately controlled Airway Patency, RR, SpO2: stable & adequate BP & HR: stable & adequate Hydration State: stable & adequate Anesthetic Complications: no major complications apparent
[2016-11-04 16:00] LABS: ISTAT CREATININE 0.8 mg/dl (0.6-1.3); ISTAT HEMOGLOBIN 14.3 g/dl (12.0-16.0); ISTAT IONIZED CALCIUM 1.29 mmol/l (1.12-1.32)
[2016-11-04 16:58] LABS: BUN/CREATININE RATIO 15.7 (10-20); CALCIUM 9.5 mg/dl (8.5-10.1); CREATININE 1.1 mg/dl (0.60-1.20)
[2016-11-04 16:59] LABS: POTASSIUM 4.2 mmol/L (3.5-5.1)
[2016-11-04] MEDS ORDERED: VANCOMYCIN CONSULT ACTIVE SCH (19:08)
[2016-11-04] MEDS ORDERED: AZTREONAM CONSULT ACTIVE PRN ×2 (19:30)
[2016-11-04] MEDS: AZTREONAM IV 2,000 MG in DEXTROSE 5% 100ML 100 ML IV SCH (19:40)
[2016-11-04] MEDS ORDERED: VANCOMYCIN INJ 1,600 MG in SODIUM CHLORIDE 0.9% 500ML 500 ML IV SCH (20:00)
--- NOTE | 2016-11-04 20:32 | Pharmacy Progress Note ---
Pharmacy Antibiotic Consult Date of Service: Nov 04, 2016. Pharmacy Dosing Scope Pharmacy is consulted to initiate aztreonam and vancomycin IV dosing therapy, order appropriate labs and adjust drug dose/frequency. Subjective The patient is a 86 year old female admitted on Nov 04, 2016 at 09:27. Objective Height (Feet): 5 Height (Inches): 0.00 Weight (Kilograms): 66.100 Lab Results (24hrs): Laboratory Tests Test 11/04/16 07:40 11/04/16 16:25 BUN/Creatinine Ratio 16.1 15.7 Blood Urea Nitrogen 16 mg/dl 17 mg/dl Creatinine 1.00 mg/dl 1.10 mg/dl White Blood Count 25.51 K/uL Red Blood Count 5.66 M/uL Hemoglobin 16.9 g/dL Hematocrit 49.5 % Mean Corpuscular Volume 87.5 fL Mean Corpuscular Hemoglobin 29.9 pg Mean Corpuscular Hemoglobin Concent 34.1 g/dl Platelet Count 312 K/uL Mean Platelet Volume 10.3 fL Neutrophils (%) (Auto) 87.5 % Lymphocytes (%) (Auto) 5.4 % Monocytes (%) (Auto) 6.2 % Eosinophils (%) (Auto) 0.2 % Basophils (%) (Auto) 0.2 % Neutrophils # (Auto) 22.29 K/uL Lymphocytes # (Auto) 1.39 K/uL Monocytes # (Auto) 1.59 K/uL Eosinophils # (Auto) 0.05 K/uL Basophils # (Auto) 0.05 K/uL Micro Results: 11/04 blood x2 pending 11/04 clean catch urine x2 pending Recent Pertinent Medications Item Value Date Time Vancomycin HCl 532 ml @ 200 mls/hr 11/04/161999 1600 mg/Sodium TODAY@1999/IV Chloride Aztreonam 2000 mg/ 110 ml @ 100 mls/hr 11/04/16 1845 Dextrose Q8@0200,1000,1800/IV 11/04/16 1940 Ceftriaxone Sodium 1 gm 11/04/16 0856 (Rocephin Inj) NOW STAT/IV 11/04/16 0907 Assessment & Plan 86 yo female admitted with SIRS, probable urinary source (ureteral stone). S/P cystoscopy with stent today. Patient is intolerant of penicillins, so we are starting vancomycin and aztreonam pending culture results. Serum creatinine elevated above baseline. Estimated initial half-life ~23 hr, but renal function may be changing. Loading dose: vancomycin 1600 mg IV X 1 dose (~25 mg/kg), then will check random vancomycin level and redose when vancomycin level is <18 mcg/ml. Goal peak level estimate: between 25-40 mcg/mL. Goal trough level estimate: between 15-20 mcg/mL. Random level has been ordered for: 11/05/16 with am labs. Aztreonam 2 Gm q8h for complicated urinary tract infection. No dose adjustment needed for est CrCl greater than 30 ml/min, but will follow closely and adjust as needed. Pharmacy will continue to follow and will adjust dose/frequency as necessary. Thank you
[2016-11-04] MEDS ORDERED: DOCUSATE SODIUM 100 MG CAP PO SCH (21:00)
[2016-11-04 22:53] LABS: HEMATOCRIT 37.8 % (37-47); MEAN CELL VOLUME 86.1 fL (80-100); MEAN CORPUSCULAR HEMOGLOBIN 29.2 pg (25-34); MEAN CORPUSCULAR HGB CONC 33.9 g/dl (32-36); PLATELET COUNT 224 K/uL (130-400); RED BLOOD COUNT 4.39 M/uL (4.2-5.4); WHITE BLOOD COUNT 35.52 K/uL (4.8-10.8)
[2016-11-04 23:05] LABS: BUN/CREATININE RATIO 16.8 (10-20); CALCIUM 8.7 mg/dl (8.5-10.1); CREATININE 1.1 mg/dl (0.60-1.20); POTASSIUM 3.8 mmol/L (3.5-5.1)
[2016-11-05] MEDS: SODIUM CHLORIDE 0.9% 1000ML 1,000 ML IV SCH (01:10)
[2016-11-05] MEDS: AZTREONAM IV 2,000 MG in DEXTROSE 5% 100ML 100 ML IV SCH ×2 (02:22→10:37)
[2016-11-05 04:34] VITALS: BP 109/57; PULSE 80; TEMP 36.8; O2SAT 91
[2016-11-05 06:00] LABS: HEMATOCRIT 39.1 % (37-47); MEAN CELL VOLUME 87.9 fL (80-100); MEAN PLATELET VOLUME 10.3 fL (7.4-10.4); PLATELET COUNT 208 K/uL (130-400); RED BLOOD COUNT 4.45 M/uL (4.2-5.4); WHITE BLOOD COUNT 32.54 K/uL (4.8-10.8)
[2016-11-05 06:09] LABS: BUN/CREATININE RATIO 20.6 (10-20); CALCIUM 8.3 mg/dl (8.5-10.1); CREATININE 0.97 mg/dl (0.60-1.20); MAGNESIUM 1.7 mg/dl (1.8-2.4); POTASSIUM 3.8 mmol/L (3.5-5.1)
[2016-11-05] MEDS: SODIUM CHLOR 0.45% + 20MEQ KCL 1,000 ML IV SCH ×3 (06:27→21:45)
[2016-11-05] MEDS ORDERED: MAGNESIUM SULFATE 1GM / D5W 1 GM in PREMIXED IN D5W 100 ML IV ONE (06:30)
[2016-11-05 08:07] VITALS: BP 112/64; PULSE 81; TEMP 36.6; O2SAT 94
--- NOTE | 2016-11-05 08:44 | Anesthesiology Progress Note ---
Anesthesia Post Op Note Date & Time Nov 05, 2016 at 08:43 Vital Signs Pain Intensity: 0.0 Vital Signs Past 12 Hours Date Time Temp Pulse Resp B/P Pulse Ox O2 Delivery O2 Flow Rate FiO2 11/05/16 08:32 Room Air 11/05/16 08:07 36.6 81 18 112/64 94 Room Air 11/05/16 04:34 36.8 80 20 109/57 91 Room Air 11/05/16 04:00 Room Air 11/05/16 00:00 Room Air 11/04/16 23:43 114/68 11/04/16 23:36 36.9 87 18 82/47 91 Room Air 84/54 11/04/16 22:10 37.3 Notes Mental Status: alert / awake / arousable, participated in evaluation Pt Amnestic to Procedure: Yes Nausea / Vomiting: adequately controlled Pain: adequately controlled Airway Patency, RR, SpO2: stable & adequate BP & HR: stable & adequate Hydration State: stable & adequate Anesthetic Complications: no major complications apparent
[2016-11-05] MEDS: PANTOprazole SOD 40 MG TAB PO SCH (08:47)
[2016-11-05] MEDS: TAMSULOSIN HCL 0.4 MG CAP PO SCH (08:48)
[2016-11-05] MEDS ORDERED: DOCUSATE SODIUM 100 MG CAP PO PRN (09:00)
[2016-11-05] MEDS ORDERED: MAGNESIUM SULFATE 1GM / D5W 1 GM in PREMIXED IN D5W 100 ML IV STA (09:24)
[2016-11-05] MEDS ORDERED: CEFTRIAXONE SOD INJ 1 GM in DEXTROSE 5% ADD-VANTAGE 50ML 50 ML IV SCH (09:30)
[2016-11-05 10:57] LABS: HEMATOCRIT 40.9 % (37-47); MEAN CELL VOLUME 87.2 fL (80-100); MEAN CORPUSCULAR HEMOGLOBIN 28.8 pg (25-34); MEAN PLATELET VOLUME 10.1 fL (7.4-10.4); PLATELET COUNT 253 K/uL (130-400); RED BLOOD COUNT 4.69 M/uL (4.2-5.4); WHITE BLOOD COUNT 31.56 K/uL (4.8-10.8)
[2016-11-05 11:00] LABS: BASO % 0.2 %; BASO ABS # 0.06 K/uL (0-0.2); ECHINOCYTES 2+; EOS % 0.5 %; IG% 0.5 %; LYMPH % 3.4 %; LYMPH ABS # 1.08 K/uL (1.2-3.4); MONO % 4.8 %; NEUT % 90.6 %; TOXIC GRANULATION 1+; VACUOLIZATION 1+
--- NOTE | 2016-11-05 11:18 | Pharmacy Progress Note ---
Pharmacy Antibiotic Prog Note Date of Service: Nov 05, 2016. Subjective: The patient is currently receiving aztreonam 2 gm IV every 8 hours, and had loading dose of vancomycin 1600 mg IV yesterday evening. The patient is currently on day # 2 of aztreonam and vancomycin IV therapy. Objective: Height (Feet): 5 Height (Inches): 0.00 Weight (Kilograms): 68.400 Levels: Item Value Date Time Random Vancomycin Level 17.9 mcg/ml 11/05/16 0530 Lab Results (24hrs): Laboratory Tests Test 11/04/16 16:25 11/04/16 22:35 11/05/16 05:30 11/05/16 10:15 BUN/Creatinine Ratio 15.7 16.8 20.6 Blood Urea Nitrogen 17 mg/dl 19 mg/dl 20 mg/dl Creatinine 1.10 mg/dl 1.10 mg/dl 0.97 mg/dl White Blood Count 35.52 K/uL 32.54 K/uL 31.56 K/uL Red Blood Count 4.69 M/uL Hemoglobin 13.5 g/dL Hematocrit 40.9 % Mean Corpuscular Volume 87.2 fL Mean Corpuscular Hemoglobin 28.8 pg Mean Corpuscular Hemoglobin Concent 33.0 g/dl Platelet Count 253 K/uL Mean Platelet Volume 10.1 fL Neutrophils (%) (Auto) 90.6 % Lymphocytes (%) (Auto) 3.4 % Monocytes (%) (Auto) 4.8 % Eosinophils (%) (Auto) 0.5 % Basophils (%) (Auto) 0.2 % Neutrophils # (Auto) 28.58 K/uL Lymphocytes # (Auto) 1.08 K/uL Monocytes # (Auto) 1.50 K/uL Eosinophils # (Auto) 0.17 K/uL Basophils # (Auto) 0.06 K/uL Micro Results: 11/04 blood x2 pending 12/05 urine x2 pending Recent Pertinent Medications: Item Value Date Time Vancomycin HCl 270 ml @ 125 mls/hr 11/05/16 1200 1000 mg/Sodium DAILY@1200/IV Chloride Vancomycin HCl 532 ml @ 200 mls/hr 11/04/16 2000 1600 mg/Sodium TODAY@2000/IV 11/04/16 205 Chloride Aztreonam 2000 mg/ 110 ml @ 100 mls/hr 11/04/16 1845 Dextrose Q8@0200,1000,1800/IV 11/05/16 1037 Ceftriaxone Sodium 1 gm 11/04/16 0856 (Rocephin Inj) NOW STAT/IV 11/04/16 0907 Assessment & Plan: This drug level is: Therapeutic. Since renal function is improving, will start scheduled vancomycin and check level at steady state. I would certainly check a vancomycin level sooner if SCr rises again. Change to vancomycin 1000 mg IV every 24 hours. Goal trough level estimate: between 15-20 mcg/mL. Trough has been ordered for: 11/07/16 before 1200 dose. Continue same dose of aztreonam with improving renal function. Pharmacy will continue to follow and will adjust dose/frequency as necessary. Thank you
[2016-11-05 11:24] VITALS: BP 101/55; PULSE 69; TEMP 36.8; O2SAT 96
--- NOTE | 2016-11-05 11:40 | Medical Consult ---
Consultation Date of Consultation: Nov 05, 2016. Attending Physician: Lucia Lara M.D. Reason for Consultation: Sepsis History of Present Illness Patient is an 86-year-old female who initially presented to the emergency department with complaints of right flank pain that started a few hours prior to admission. The patient states that approximately 1 week prior to admission, she noted some nausea and vomiting for 1 day which seemed to subside. She thought she had GI bug at that time. She then began to have right-sided flank pain, and she does have history of kidney stone with lithotripsy In the past. She had also noted some pain radiating into her right groin, but she has not had any urinary symptoms. She states that she has not had any further nausea, vomiting, or diarrhea. She denies fever, sweats, or chills. She has not had any abdominal pain, chest pain, shortness of breath, headache, or hematuria. Since admission, patient did have a CT of the abdomen/pelvis, which did show a 7 mm obstructing renal stone in the right ureter with moderate to severe right- sided hydronephrosis and perinephric edema along with bilateral nephrolithiasis. Since that time, the patient has undergone a right ureteral stent placement. She also had a urine culture and blood cultures which are still pending at this time. The patient was noted to have leukocytosis of 25.51 on admission, and her white blood cell count is 31.56 this morning. It is also noted that her lactic acid was up to 4.04, and is still 2.5 today. Her ESR and CRP were normal. She did also have a temp to 38.1 C. She has since been afebrile today. She was placed on IV vancomycin and aztreonam due to multiple allergies. She states that her flank pain is improved since her procedure yesterday. Past Medical/Surgical History Medical Problems: (1) Kidney stone Status: Acute Medical Problems: (1) Chronic pansinusitis (2) Essential hypertension (3) Hyperlipidemia (4) Renal and ureteric calculus (5) Senile osteoporosis (6) Snoring Surgical Problems: (1) H/O lithotripsy (2) History of tonsillectomy and adenoidectomy Family History Hypertension Kidney disease Kidney stones Noncontributory Social History Smoking Status: Never Smoker Alcohol Use: none Drug Use: none Marital Status: Occupation Status: other Allergies Coded Allergies: Amoxicillin (Verified Adverse Reaction, Unknown, nauseated, 11/04/16) Clavulanic Acid (Verified Adverse Reaction, Unknown, nauseated, 11/04/16) Clindamycin (Verified Adverse Reaction, Unknown, GI SYMPTOMS, 11/04/16) Home Medications Reported Home Medications Medications Dose Route/Sig Max Daily Dose Days Date Category Dose Instructions Prilosec (Omeprazole) 20 Mg Capcr 20 Mg PO DAILY 07/28/16 Reported Antivert (Meclizine Hcl) 25 Mg Tab 25 Mg PO TID PRN 05/04/12 Reported NEEDED FOR DIZZINESS Zocor (Simvastatin) 20 Mg Tab 20 Mg PO QPM 04/12/10 Reported Tenormin (Atenolol) 50 Mg Tab 25 Mg PO DAILY 04/12/10 Reported Current Inpatient Medications Current Inpatient Medications Medications (Trade) Dose Ordered Sig/Davida Route Start Time Stop Time Status Last Admin Dose Admin Tamsulosin HCl (Flomax Cap) 0.4 mg QAM PO 11/05/16 09:00 12/05/16 08:59 11/05/16 08:48 0.4 MG Acetaminophen/ Hydrocodone Bitart ([place] 10/325 Tab) 1 tab Q4 PRN PO 11/04/16 09:30 11/18/16 09:29 Acetaminophen/ Hydrocodone Bitart ([place] 10/325 Tab) 2 tab Q4 PRN PO 11/04/16 09:30 11/18/16 09:29 Ketorolac Tromethamine (Toradol Inj) 15 mg Q6H PRN IV 11/04/16 09:45 11/09/16 09:44 Acetaminophen (Tylenol Tab) 650 mg Q4H PRN PO 11/04/16 09:45 12/04/16 09:44 11/04/16 20:53 650 MG Al Hydrox/Mg Hydrox/Simethicone (Maalox Max Susp) 15 ml Q4H PRN PO 11/04/16 09:45 12/04/16 09:44 Magnesium Hydroxide (Milk Of Magnesia Susp) 30 ml Q6H PRN PO 11/04/16 09:45 12/04/16 09:44 Ondansetron HCl (Zofran Inj) 4 mg Q6H PRN IV 11/04/16 09:45 12/04/16 09:44 Meclizine HCl (Antivert Tab) 25 mg TID PRN PO 11/04/16 14:00 12/04/16 13:59 Pantoprazole Sodium (Protonix Tab) 40 mg DAILY PO 11/05/16 09:00 12/05/16 08:59 11/05/16 08:47 40 MG Atenolol (Tenormin Tab) 25 mg DAILY PO 11/05/16 09:00 12/05/16 08:59 11/05/16 08:46 25 MG Docusate Sodium (coLACE CAP) 100 mg DAILY PRN PO 11/05/16 09:00 12/05/16 08:59 Polyethylene 17 gm 17 gm DAILY PRN PO 11/04/16 14:30 12/04/16 14:29 Aztreonam/Dextrose (Azactam IV/D5 100ml) 110 ml @ 100 mls/hr Q8@0200,1000,1800 IV 11/04/16 18:45 11/14/16 18:44 11/05/16 10:37 100 MLS/HR Vancomycin HCl (Consult) 1 ea UD N/A 11/04/16 19:08 12/04/16 19:07 Aztreonam 1 ea 1 ea UD PRN N/A 11/04/16 19:30 12/04/16 19:29 Potassium Chloride/Sodium Chloride 1,000 ml @ 150 mls/hr Q6H40M IV 11/05/16 06:30 12/05/16 06:29 11/05/16 06:27 150 MLS/HR Vancomycin HCl/ Sodium Chloride (Vancomycin Inj/ Nss 250ml) 270 ml @ 125 mls/hr DAILY@1200 IV 11/05/16 12:00 11/14/16 19:00 Review of Systems Constitutional: No chills, No fever, No sweats Eyes: No worsening of vision ENT: No hearing loss Respiratory: No cough, No shortness of breath Cardiovascular: No chest pain Abdomen: + 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), + problem reported (right flank pain), + vomiting ([employer]CHNICIAN- one episode- none since), No diarrhea, No pain Musculoskeletal: No joint pain Genitourinary - Female: No dysuria, No urinary frequency Integumentary: No itch, No rash Physical Exam Date Time Temp Pulse Resp B/P Pulse Ox O2 Delivery O2 Flow Rate FiO2 11/05/16 11:24 36.8 69 16 101/55 96 Room Air 11/05/16 08:32 Room Air 11/05/16 08:07 36.6 81 18 112/64 94 Room Air 11/05/16 04:34 36.8 80 20 109/57 91 Room Air 11/05/16 04:00 Room Air 11/05/16 00:00 Room Air 11/04/16 23:43 114/68 11/04/16 23:36 36.9 87 18 82/47 91 Room Air 84/54 11/04/16 22:10 37.3 11/04/16 20:00 Room Air 11/04/16 19:45 38.1 105 18 101/62 91 Room Air 11/04/16 18:00 37.4 118 18 120/65 92 11/04/16 17:10 37.1 117 18 128/70 95 Room Air 11/04/16 16:30 37.0 105 20 157/58 93 Room Air 11/04/16 16:00 Room Air 11/04/16 16:00 37.3 89 16 150/84 94 Room Air 11/04/16 15:40 37 84 16 151/64 95 Room Air 11/04/16 15:30 84 16 146/66 100 Mask 10 11/04/16 15:20 37 85 16 140/65 97 Mask 10 11/04/16 12:00 36.6 80 18 95 General Appearance: WD/WN, no apparent distress Head: normocephalic, atraumatic Eyes: normal inspection, sclerae normal ENT: hearing grossly normal Neck: supple, trachea midline Respiratory/Chest: chest non-tender, normal breath sounds, no respiratory distress, no accessory muscle use, + crackles (mild right base) Cardiovascular: regular rate, rhythm, no murmur Abdomen/GI: normal bowel sounds Back: normal inspection Extremities/Musculoskelatal: normal inspection Neurologic/Psych: alert, normal mood/affect Skin: normal color, warm/dry, no rash Laboratory Results ABDOMEN AND PELVIS CT WITHOUT CONTRAST CT DOSE: 657.63 mGy.cm HISTORY: Pt c/o Rt sided flank pain TECHNIQUE: Multiaxial CT images of the abdomen and pelvis were performed without the use of intravenous and oral contrast according to the standard department stone protocol. COMPARISON STUDY: Abdomen and pelvis CT 05/04/2012. FINDINGS: Punctate calcified granuloma within the right lung base. Left basilar linear densities favor subsegmental atelectasis. There is a small hiatus hernia. No suspicious lytic or blastic osseous lesions. The unenhanced liver, gallbladder, adrenal glands are unremarkable. Stable 6 mm hypodense lesion within the body of the pancreas. 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 Multiple calcified splenic granulomas. Mild bladder wall thickening is likely due to underdistention. The uterus and adnexa are unremarkable. Small fat-containing bilateral inguinal hernias. Moderate well-formed stool within the rectum. Colonic diverticulosis. No definite bowel wall thickening or obstruction. There is a 7 mm obstructing stone within the distal right ureter on image 119. This results in moderate to severe right-sided hydroureteronephrosis. There is also right perinephric edema. Multiple bilateral renal calculi. No left-sided hydronephrosis. IMPRESSION: 1. A 7 mm obstructing stone within the distal right ureter resulting in moderate to severe right-sided hydroureteronephrosis. There is associated right perinephric edema. 2. Bilateral nephrolithiasis. 3. Additional findings as described above. Last 24 Hours Test 11/04/16 15:21 11/04/16 16:25 11/04/16 22:35 11/05/16 05:30 Bedside Hemoglobin 14.3 g/dl Bedside Hematocrit 42 % Bedside Sodium 147 mEq/L Bedside Potassium 4.1 mEq/L Bedside Chloride 111 mEq/L Bedside Total CO2 21 mEq/l Anion Gap 20.0 mmol/L 11.0 mmol/L 11.0 mmol/L 12.0 mmol/L Bedside Blood Urea Nitrogen 16 mg/dl Bedside Creatinine 0.8 mg/dl Bedside Glucose (other) 112 mg/dl Bedside Ionized Calcium (Anthony) 1.29 mmol/l Sodium Level 148 mmol/L 145 mmol/L 146 mmol/L Potassium Level 4.2 mmol/L 3.8 mmol/L 3.8 mmol/L Chloride Level 113 mmol/L 114 mmol/L 114 mmol/L Carbon Dioxide Level 24 mmol/L 20 mmol/L 20 mmol/L Blood Urea Nitrogen 17 mg/dl 19 mg/dl 20 mg/dl Creatinine 1.10 mg/dl 1.10 mg/dl 0.97 mg/dl Est Creatinine Clear Calc Drug Dose 31.1 ml/min 31.1 ml/min 35.3 ml/min Estimated GFR () 52.6 52.6 61.3 Estimated GFR (Non- 45.4 45.4 52.9 BUN/Creatinine Ratio 15.7 16.8 20.6 Random Glucose 112 mg/dl 120 mg/dl 100 mg/dl Lactic Acid Level 4.0 mmol/L 3.1 mmol/L 2.7 mmol/L Calcium Level 9.5 mg/dl 8.7 mg/dl 8.3 mg/dl White Blood Count 35.52 K/uL 32.54 K/uL Red Blood Count 4.39 M/uL 4.45 M/uL Hemoglobin 12.8 g/dL 12.9 g/dL Hematocrit 37.8 % 39.1 % Mean Corpuscular Volume 86.1 fL 87.9 fL Mean Corpuscular Hemoglobin 29.2 pg 29.0 pg Mean Corpuscular Hemoglobin Concent 33.9 g/dl 33.0 g/dl RDW Standard Deviation 45.2 fL 47.2 fL RDW Coefficient of Variation 14.4 % 14.7 % Platelet Count 224 K/uL 208 K/uL Mean Platelet Volume 10.0 fL 10.3 fL Magnesium Level 1.7 mg/dl Lipase 101 U/L Random Vancomycin Level 17.9 mcg/ml Test 11/05/16 10:15 White Blood Count 31.56 K/uL Red Blood Count 4.69 M/uL Hemoglobin 13.5 g/dL Hematocrit 40.9 % Mean Corpuscular Volume 87.2 fL Mean Corpuscular Hemoglobin 28.8 pg Mean Corpuscular Hemoglobin Concent 33.0 g/dl Platelet Count 253 K/uL Mean Platelet Volume 10.1 fL Neutrophils (%) (Auto) 90.6 % Lymphocytes (%) (Auto) 3.4 % Monocytes (%) (Auto) 4.8 % Eosinophils (%) (Auto) 0.5 % Basophils (%) (Auto) 0.2 % Neutrophils # (Auto) 28.58 K/uL Lymphocytes # (Auto) 1.08 K/uL Monocytes # (Auto) 1.50 K/uL Eosinophils # (Auto) 0.17 K/uL Basophils # (Auto) 0.06 K/uL RDW Standard Deviation 47.2 fL RDW Coefficient of Variation 14.8 % Immature Granulocyte % (Auto) 0.5 % Immature Granulocyte # (Auto) 0.17 K/uL Toxic Granulation 1+ Toxic Vacuolation 1+ Echinocytes 2+ Assessment & Plan Patient with sepsis of likely urologic source with right obstructing renal calculi and right hydronephrosis on CT scan. Urine and blood cultures are pending. Patient continues to have severe leukocytosis. Currently on IV Vancomycin and Azactam. Will change Azactam to IV Primaxin pending urine and blood cultures. Patient likely will need 14 days of abx therapy regardless due to likely kidney involvement, but urine and blood cultures will determine whether she needs IV or PO abx therapy. We will follow. PROVIDER ADDENDUM: Pt. examined and reviewed with Ms. Parker. Agree with above assessment. Nehemiah Rosario M.D.
[2016-11-05] MEDS ORDERED: VANCOMYCIN INJ 1,000 MG in SODIUM CHLORIDE 0.9% 250ML 250 ML IV SCH (12:00)
[2016-11-05] MEDS ORDERED: IMIPENEM/CILASTATIN CONSULT ACTIVE PRN (12:15)
[2016-11-05 14:29] LABS: COMPLETE YES
[2016-11-05] MEDS: IMIPENEM-CILASTATIN 250 MG in DEXTROSE 5% 100ML 100 ML IV SCH ×2 (14:59→21:48)
[2016-11-05 15:53] VITALS: BP 109/70; PULSE 74; TEMP 37; O2SAT 91
[2016-11-05] MEDS ORDERED: SOD PHOSPHATE/SOD BIPHOSPHATE ENEMA 132 ML BTL PR STA (18:15)
--- NOTE | 2016-11-05 18:24 | Progress Note ---
Subjective Date of Service: Nov 05, 2016. Subjective Pt evaluation today including: conversation w/ patient, physical exam, chart review, lab review, conversation w/ [employer] consultant Patient continues to feel well. Labs still with very high WBC > 30K but lactic acid slowly improving. She notes her urine was very cloudy yesterday and clearing today. No dysuria. She does admit she tends to be very stoic., She does c/o of constipation for over 5 days. She takes benefiber at home. Problem List Medical Problems: (1) Kidney stone Status: Acute Review of Systems Constitutional: + fatigue, + weakness, No chills, No fever, No sweats Respiratory: No cough Cardiac: No chest pain, No palpitations Female : + dysuria, + urinary frequency, No hematuria Endo: + fatigue Objective Vital Signs Date Time Temp Pulse Resp B/P Pulse Ox O2 Delivery O2 Flow Rate FiO2 11/05/16 16:00 Room Air 11/05/16 15:53 37.0 74 18 109/70 91 Room Air 11/05/16 11:24 36.8 69 16 101/55 96 Room Air 11/05/16 08:32 Room Air 11/05/16 08:07 36.6 81 18 112/64 94 Room Air 11/05/16 04:34 36.8 80 20 109/57 91 Room Air 11/05/16 04:00 Room Air 11/05/16 00:00 Room Air 11/04/16 23:43 114/68 11/04/16 23:36 36.9 87 18 82/47 91 Room Air 84/54 11/04/16 22:10 37.3 11/04/16 20:00 Room Air 11/04/16 19:45 38.1 105 18 101/62 91 Room Air Physical Exam General Appearance: WD/WN, no apparent distress Eyes: EOMI ENT: hearing grossly normal Respiratory/Chest: no accessory muscle use Neurologic/Psychiatric: alert, normal mood/affect, oriented x 3 Laboratory Results Last 24 Hours Test 11/04/16 22:35 11/05/16 05:30 11/05/16 10:15 11/05/16 12:15 White Blood Count 35.52 K/uL 32.54 K/uL 31.56 K/uL Red Blood Count 4.39 M/uL 4.45 M/uL 4.69 M/uL Hemoglobin 12.8 g/dL 12.9 g/dL 13.5 g/dL Hematocrit 37.8 % 39.1 % 40.9 % Mean Corpuscular Volume 86.1 fL 87.9 fL 87.2 fL Mean Corpuscular Hemoglobin 29.2 pg 29.0 pg 28.8 pg Mean Corpuscular Hemoglobin Concent 33.9 g/dl 33.0 g/dl 33.0 g/dl RDW Standard Deviation 45.2 fL 47.2 fL 47.2 fL RDW Coefficient of Variation 14.4 % 14.7 % 14.8 % Platelet Count 224 K/uL 208 K/uL 253 K/uL Mean Platelet Volume 10.0 fL 10.3 fL 10.1 fL Sodium Level 145 mmol/L 146 mmol/L Potassium Level 3.8 mmol/L 3.8 mmol/L Chloride Level 114 mmol/L 114 mmol/L Carbon Dioxide Level 20 mmol/L 20 mmol/L Anion Gap 11.0 mmol/L 12.0 mmol/L Blood Urea Nitrogen 19 mg/dl 20 mg/dl Creatinine 1.10 mg/dl 0.97 mg/dl Est Creatinine Clear Calc Drug Dose 31.1 ml/min 35.3 ml/min Estimated GFR () 52.6 61.3 Estimated GFR (Non- 45.4 52.9 BUN/Creatinine Ratio 16.8 20.6 Random Glucose 120 mg/dl 100 mg/dl Lactic Acid Level 3.1 mmol/L 2.7 mmol/L 2.5 mmol/L Calcium Level 8.7 mg/dl 8.3 mg/dl Magnesium Level 1.7 mg/dl Lipase 101 U/L Random Vancomycin Level 17.9 mcg/ml Neutrophils (%) (Auto) 90.6 % Lymphocytes (%) (Auto) 3.4 % Monocytes (%) (Auto) 4.8 % Eosinophils (%) (Auto) 0.5 % Basophils (%) (Auto) 0.2 % Neutrophils # (Auto) 28.58 K/uL Lymphocytes # (Auto) 1.08 K/uL Monocytes # (Auto) 1.50 K/uL Eosinophils # (Auto) 0.17 K/uL Basophils # (Auto) 0.06 K/uL Immature Granulocyte % (Auto) 0.5 % Immature Granulocyte # (Auto) 0.17 K/uL Toxic Granulation 1+ Toxic Vacuolation 1+ Echinocytes 2+ Peripheral Blood Smear Path Consult Assessment and Plan right obstructing ureteral stone with uti and ct suggestion of pyelonephritis. urine is growing e coli. blood culture pending. still with lactic acidosis and very high white count. cont iv abt hope to have her well enough for stone removal surgery next week as outpatient. I will try to remove both the ureteral stone and the larger right renal pelvis stone as well as as many of the small right renal stones as possible.
[2016-11-05 19:29] VITALS: BP 112/69; PULSE 83; TEMP 36.8; O2SAT 93
[2016-11-05 20:05] VITALS: O2SAT 93
--- NOTE | 2016-11-05 20:42 | Progress Note ---
Internal Med Progress Note Date of Service: Nov 05, 2016. Provider Documentation: SUBJECTIVE: feels very weak and tired afebrile , no nausea or abdominal discomfort no SOB OBJECTIVE: Vital Signs-as noted below Exam: General-elderly female, no apparent sign of distress Eyes-sclera non icteric ENT-moist oral mucosa Neck-trachea midline, no thyromegaly Lungs-CTA, no wheeze or rales Heart-regular Abdomen-soft, non tender Extremities-no rash or deformity Neuro-no focal neurological deficit Lab data as noted below. ASSESSMENT & PLAN: SEVERE SEPSIS due to obstructed rt ureteric stone /UTI /pyelonephritis meet criteria -marked leukocytosis, tachycardia, elevated lactic acid Urine , blood culture ordered urine culture growing E Coli -sensitivity pending appreciate Urology help s/p rt ureteric stent placement for obstructed uropathy pt continues to have persisted leukocytosis , elevated lactic acid ABx changed to Cefepime /Vanco given urine Culture + ve E coli -will D/C Vanco cont to follow cultures IV fluid for resuscitation will need out pt Urology follow up for removal of ureteric stone and stent LACTIC ACIDOSIS : due to above cont IV fluids follow serial labs mild lipase elevation due to sepsis , nausea /vomiting resolved with IV hydration RUQ -no liver /gall bladder /pancreatic pathology MARKED LEUKOCYTOSIS : possible due to above -UTi . infected ureteric stone WBC elevated 25 k0> 32 K with marked left shift Peripheral film shows mostly neutrophils with left shift , toxic granules- suggestive of infectious process no malignant cell seen stool for C diff ordered ( reports of diarrhea few days back ) -no BM yet no cough symptom , Cxray no evidence of pneumonia cont IV fluid ID following Abx broaden coverage to IV Cefepime /vancomycin daily CBC monitor in Telel DVT PROPHYLAXIS scd and teds avoid anticoagulation for recent ureteric procedure DNR/DNI DISPOSITION to home when medically stable Vital Signs: Date Time Temp Pulse Resp B/P Pulse Ox O2 Delivery O2 Flow Rate FiO2 11/05/16 19:29 36.8 83 18 112/69 93 Room Air 11/05/16 16:00 Room Air 11/05/16 15:53 37.0 74 18 109/70 91 Room Air 11/05/16 11:24 36.8 69 16 101/55 96 Room Air 11/05/16 08:32 Room Air 11/05/16 08:07 36.6 81 18 112/64 94 Room Air 11/05/16 04:34 36.8 80 20 109/57 91 Room Air 11/05/16 04:00 Room Air 11/05/16 00:00 Room Air 11/04/16 23:43 114/68 11/04/16 23:36 36.9 87 18 82/47 91 Room Air 84/54 11/04/16 22:10 37.3 Lab Results: Results Past 24 Hours Test 11/04/16 22:35 11/05/16 05:30 11/05/16 10:15 11/05/16 12:15 Range/Units White Blood Count 35.52 32.54 31.56 4.8-10.8 K/uL Red Blood Count 4.39 4.45 4.69 4.2-5.4 M/uL Hemoglobin 12.8 12.9 13.5 12.0-16.0 g/dL Hematocrit 37.8 39.1 40.9 37-47 % Mean Corpuscular Volume 86.1 87.9 87.2 80-100 fL Mean Corpuscular Hemoglobin 29.2 29.0 28.8 25-34 pg Mean Corpuscular Hemoglobin Concent 33.9 33.0 33.0 32-36 g/dl RDW Standard Deviation 45.2 47.2 47.2 36.4-46.3 fL RDW Coefficient of Variation 14.4 14.7 14.8 11.5-14.5 % Platelet Count 224 208 253 130-400 K/uL Mean Platelet Volume 10.0 10.3 10.1 7.4-10.4 fL Sodium Level 145 146 136-145 mmol/L Potassium Level 3.8 3.8 3.5-5.1 mmol/L Chloride Level 114 114 98-107 mmol/L Carbon Dioxide Level 20 20 21-32 mmol/L Anion Gap 11.0 12.0 3-11 mmol/L Blood Urea Nitrogen 19 20 7-18 mg/dl Creatinine 1.10 0.97 0.60-1.20 mg/dl Est Creatinine Clear Calc Drug Dose 31.1 35.3 ml/min Estimated GFR () 52.6 61.3 Estimated GFR (Non- 45.4 52.9 BUN/Creatinine Ratio 16.8 20.6 10-20 Random Glucose 120 100 70-99 mg/dl Lactic Acid Level 3.1 2.7 2.5 0.4-2.0 mmol/L Calcium Level 8.7 8.3 8.5-10.1 mg/dl Magnesium Level 1.7 1.8-2.4 mg/dl Lipase 101 73-393 U/L Random Vancomycin Level 17.9 mcg/ml Neutrophils (%) (Auto) 90.6 % Lymphocytes (%) (Auto) 3.4 % Monocytes (%) (Auto) 4.8 % Eosinophils (%) (Auto) 0.5 % Basophils (%) (Auto) 0.2 % Neutrophils # (Auto) 28.58 1.4-6.5 K/uL Lymphocytes # (Auto) 1.08 1.2-3.4 K/uL Monocytes # (Auto) 1.50 0.11-0.59 K/uL Eosinophils # (Auto) 0.17 0-0.5 K/uL Basophils # (Auto) 0.06 0-0.2 K/uL Immature Granulocyte % (Auto) 0.5 % Immature Granulocyte # (Auto) 0.17 0.00-0.02 K/uL Toxic Granulation 1+ Toxic Vacuolation 1+ Echinocytes 2+ Peripheral Blood Smear Path Consult Test 11/05/16 18:13 Range/Units Lactic Acid Level 2.6 0.4-2.0 mmol/L
[2016-11-06] VITALS (12 sets, daily range): BP systolic 96–132; BP diastolic 54–79; PULSE 67–86; TEMP 36.5–37.1; O2SAT 91–96
[2016-11-06] MEDS: SODIUM CHLOR 0.45% + 20MEQ KCL 1,000 ML IV SCH ×3 (05:14→21:17)
[2016-11-06] MEDS: IMIPENEM-CILASTATIN 250 MG in DEXTROSE 5% 100ML 100 ML IV SCH (05:18)
[2016-11-06 08:44] LABS: HEMATOCRIT 36.3 % (37-47); MEAN CELL VOLUME 86.8 fL (80-100); MEAN CORPUSCULAR HEMOGLOBIN 28.9 pg (25-34); MEAN CORPUSCULAR HGB CONC 33.3 g/dl (32-36); MEAN PLATELET VOLUME 10.5 fL (7.4-10.4); PLATELET COUNT 195 K/uL (130-400); RED BLOOD COUNT 4.18 M/uL (4.2-5.4); WHITE BLOOD COUNT 14.51 K/uL (4.8-10.8)
[2016-11-06] MEDS: PANTOprazole SOD 40 MG TAB PO SCH (08:53)
[2016-11-06] MEDS: TAMSULOSIN HCL 0.4 MG CAP PO SCH (08:54)
[2016-11-06] MEDS: PSYLLIUM 58.6% PWD PACK S\\F PO SCH (08:55)
[2016-11-06 09:27] LABS: BUN/CREATININE RATIO 12.8 (10-20); CALCIUM 8.8 mg/dl (8.5-10.1); CREATININE 0.75 mg/dl (0.60-1.20); MAGNESIUM 1.7 mg/dl (1.8-2.4); POTASSIUM 3.8 mmol/L (3.5-5.1)
--- NOTE | 2016-11-06 09:28 | Progress Note ---
Subjective Date of Service: Nov 06, 2016. Subjective Pt evaluation today including: conversation w/ patient, physical exam, chart review, lab review, conversation w/ web[employer] consultant Voiding: no voiding problems urine clear no dysuria afebrile feeling better but still weak Problem List Medical Problems: (1) Kidney stone Status: Acute Review of Systems Constitutional: No chills, No fever Respiratory: No cough, No sputum Abdomen: + constipation, No nausea, No pain Female : + hematuria, + urinary frequency Objective Vital Signs Date Time Temp Pulse Resp B/P Pulse Ox O2 Delivery O2 Flow Rate FiO2 11/06/16 07:36 37.0 78 18 132/79 93 Room Air 11/06/16 04:44 37.1 86 16 128/70 91 Room Air 11/06/16 04:00 93 Room Air 11/06/16 00:12 37.1 80 16 102/55 93 Room Air 11/05/16 20:05 93 Room Air 11/05/16 19:29 36.8 83 18 112/69 93 Room Air 11/05/16 16:00 Room Air 11/05/16 15:53 37.0 74 18 109/70 91 Room Air 11/05/16 11:24 36.8 69 16 101/55 96 Room Air Physical Exam General Appearance: WD/WN, no apparent distress, + obese Eyes: normal inspection ENT: hearing grossly normal Neurologic/Psychiatric: alert, normal mood/affect, oriented x 3 Laboratory Results Last 24 Hours Test 11/05/16 10:15 11/05/16 12:15 11/05/16 18:13 11/06/16 08:00 White Blood Count 31.56 K/uL 14.51 K/uL Red Blood Count 4.69 M/uL 4.18 M/uL Hemoglobin 13.5 g/dL 12.1 g/dL Hematocrit 40.9 % 36.3 % Mean Corpuscular Volume 87.2 fL 86.8 fL Mean Corpuscular Hemoglobin 28.8 pg 28.9 pg Mean Corpuscular Hemoglobin Concent 33.0 g/dl 33.3 g/dl Platelet Count 253 K/uL 195 K/uL Mean Platelet Volume 10.1 fL 10.5 fL Neutrophils (%) (Auto) 90.6 % Lymphocytes (%) (Auto) 3.4 % Monocytes (%) (Auto) 4.8 % Eosinophils (%) (Auto) 0.5 % Basophils (%) (Auto) 0.2 % Neutrophils # (Auto) 28.58 K/uL Lymphocytes # (Auto) 1.08 K/uL Monocytes # (Auto) 1.50 K/uL Eosinophils # (Auto) 0.17 K/uL Basophils # (Auto) 0.06 K/uL RDW Standard Deviation 47.2 fL 46.9 fL RDW Coefficient of Variation 14.8 % 14.8 % Immature Granulocyte % (Auto) 0.5 % Immature Granulocyte # (Auto) 0.17 K/uL Toxic Granulation 1+ Toxic Vacuolation 1+ Echinocytes 2+ Peripheral Blood Smear Path Consult Lactic Acid Level 2.5 mmol/L 2.6 mmol/L 1.3 mmol/L Test 11/06/16 09:18 Assessment and Plan right obstructing ureteral stone with uti and ct suggestion of pyelonephritis. urine is growing e coli. blood culture pending. cleared her lactic acidosis and nearly normalized her very high white count. cont iv abt hope to have her well enough for stone removal surgery next week tuesday as outpatient. she singed consent today. for right ureteroscopy laser lithotripsy basket stone extraction. stent exchange I will try to remove both the ureteral stone and the larger right renal pelvis stone as well as as many of the small right renal stones as possible.
--- NOTE | 2016-11-06 09:53 | Progress Note ---
Progress Note ATTENDING NOTE : LAB REVIEWED : marked improvement of Leukocytosis 31K -> 14 K resolution of lactic acidosis normal Lactic acid 1.3 this AM urine culture -E Coli -suarez sensitive blood culture negative will D/C Cefepime change to IV Ciprofloxacin will transition to PO tomorrow if continues to improve clinically will need 2 weeks of ABx tx pt is scheduled for out pt Urology follow up with Ureteric stent and stone removal on Tuesday11/10/16
[2016-11-06] MEDS ORDERED: CIPROFLOXACIN / D5W 400 MG in PREMIXED IN D5W 200 ML IV SCH (10:00)
[2016-11-06] MEDS ORDERED: MAGNESIUM SULFATE 1GM / D5W 1 GM in PREMIXED IN D5W 100 ML IV ONE (10:00)
--- NOTE | 2016-11-06 18:11 | Progress Note ---
Internal Med Progress Note Date of Service: Nov 06, 2016. Provider Documentation: SUBJECTIVE: feels much better , no fever or chills energy level has improved no abdominal pain no discomfort OBJECTIVE: Vital Signs-as noted below Exam: General-elderly female, no apparent sign of distress Eyes-sclera non icteric ENT-moist oral mucosa Neck-trachea midline, no thyromegaly Lungs-CTA, no wheeze or rales Heart-regular Abdomen-soft, non tender Extremities-no rash or deformity Neuro-no focal neurological deficit Lab data as noted below. ASSESSMENT & PLAN: SEVERE SEPSIS resolved due to obstructed rt ureteric stone /UTI /pyelonephritis met criteria -marked leukocytosis, tachycardia, elevated lactic acid Urine , blood culture ordered blood culture no growth urine culture growing E Coli -suarez sensitive Abx changed to Ciprofloxacin need total 14 days tx appreciate Urology help s/p rt ureteric stent placement for obstructed uropathy out pt Urology follow up next weeks ( Tuesday11/10/16 ) for removal of ureteric stone and stent LACTIC ACIDOSIS : due to above resolved with IV fluids mild lipase elevation due to sepsis , nausea /vomiting resolved with IV hydration RUQ -no liver /gall bladder /pancreatic pathology diet advanced tolerating well MARKED LEUKOCYTOSIS : improved due to above -UTi . infected ureteric stone /sepsis WBC 25 k0> 32 K -> 18 K with marked left shift Peripheral film shows mostly neutrophils with left shift , toxic granules- suggestive of infectious process no malignant cell seen appreciate ID eval DVT PROPHYLAXIS scd and teds avoid anticoagulation for recent ureteric procedure DNR/DNI DISPOSITION discharge to home in 1-2 day Vital Signs: Date Time Temp Pulse Resp B/P Pulse Ox O2 Delivery O2 Flow Rate FiO2 11/06/16 16:00 96 Room Air 11/06/16 15:14 37.0 67 16 96/54 96 Room Air 11/06/16 12:01 93 Room Air 11/06/16 11:52 36.5 68 18 106/66 96 Room Air 11/06/16 08:00 93 Room Air 11/06/16 07:36 37.0 78 18 132/79 93 Room Air 11/06/16 04:44 37.1 86 16 128/70 91 Room Air 11/06/16 04:00 93 Room Air 11/06/16 00:12 37.1 80 16 102/55 93 Room Air 11/05/16 20:05 93 Room Air 11/05/16 19:29 36.8 83 18 112/69 93 Room Air Lab Results: Results Past 24 Hours Test 11/05/16 18:13 11/06/16 08:00 11/06/16 09:38 11/06/16 14:12 Range/Units Lactic Acid Level 2.6 1.3 2.6 1.6 0.4-2.0 mmol/L White Blood Count 14.51 4.8-10.8 K/uL Red Blood Count 4.18 4.2-5.4 M/uL Hemoglobin 12.1 12.0-16.0 g/dL Hematocrit 36.3 37-47 % Mean Corpuscular Volume 86.8 80-100 fL Mean Corpuscular Hemoglobin 28.9 25-34 pg Mean Corpuscular Hemoglobin Concent 33.3 32-36 g/dl RDW Standard Deviation 46.9 36.4-46.3 fL RDW Coefficient of Variation 14.8 11.5-14.5 % Platelet Count 195 130-400 K/uL Mean Platelet Volume 10.5 7.4-10.4 fL Sodium Level 144 136-145 mmol/L Potassium Level 3.8 3.5-5.1 mmol/L Chloride Level 114 98-107 mmol/L Carbon Dioxide Level 21 21-32 mmol/L Anion Gap 9.0 3-11 mmol/L Blood Urea Nitrogen 10 7-18 mg/dl Creatinine 0.75 0.60-1.20 mg/dl Est Creatinine Clear Calc Drug Dose 46.8 ml/min Estimated GFR () 83.7 Estimated GFR (Non- 72.2 BUN/Creatinine Ratio 12.8 10-20 Random Glucose 84 70-99 mg/dl Calcium Level 8.8 8.5-10.1 mg/dl Magnesium Level 1.7 2.2 1.8-2.4 mg/dl
[2016-11-06] MEDS ORDERED: CPR250 PO (18:12)
[2016-11-06] MEDS ORDERED: FLM4 PO (18:12)
--- NOTE | 2016-11-06 18:14 | Discharge Instructions ---
Discharge Instructions Admission Reason for Admission: Renal And Ureteric Calculus Discharge Discharge Diagnosis / Problem: SEVERE SEPSIS /UTI /OBSTRUCTED URETERIC STONE Discharge Goals Goal(s): Decrease discomfort, Improve disease control, Diagnostic testing, Therapeutic intervention Activity Recommendations Activity Limitations: resume your previous activity . Instructions / Follow-Up Instructions / Follow-Up HOSPITAL FOLLOW UP WITH DR Loretta Duque DO ( DR MINAYA IS OUT OF OFFICE ) ON 11/12/2016 @ 1:30 PM [facility] UROLOGY FOLLOW UP WITH DR OCHOA ON Tuesday11/10/15 FOR RT URETERIC STONE AND STENT REMOVAL ; OFFICE WILL CALL WITH APPOINTMENT Current Hospital Diet Patient's current hospital diet: Regular Diet Discharge Diet Recommended Diet: Regular Diet Procedures Procedures Performed: Cystosocpy, Ureteral Stent Insertion Right Pending Studies Studies pending at discharge: yes List of pending studies: CYSTOSCOPY , URETERIC STONE AND STENT REMOVAL Medical Emergencies . Who to Call and When: Medical Emergencies: If at any time you feel your situation is an emergency, please call 911 immediately. . Non-Emergent Contact Non-Emergency issues call your: Primary Care Provider . . "Provider Documentation" section prepared by Lucia Lara. VTE Core Measure Inpt VTE Proph given/why not?: Marcie Yap, SCD's [place] Drug Monitoring Program Search Results: no issues identified
[2016-11-06] MEDS: CIPROFLOXACIN 500 MG TAB PO SCH (19:37)
[2016-11-06] MEDS ORDERED: DOCUSATE SODIUM 100 MG CAP PO PRN (19:45)
[2016-11-07 07:30] LABS: HEMATOCRIT 38.1 % (37-47); MEAN CORPUSCULAR HEMOGLOBIN 29.1 pg (25-34); MEAN CORPUSCULAR HGB CONC 33.9 g/dl (32-36); MEAN PLATELET VOLUME 10.5 fL (7.4-10.4); PLATELET COUNT 221 K/uL (130-400); RED BLOOD COUNT 4.43 M/uL (4.2-5.4); WHITE BLOOD COUNT 11.57 K/uL (4.8-10.8)
[2016-11-07] MEDS: CIPROFLOXACIN 500 MG TAB PO SCH ×2 (07:50→21:36)
[2016-11-07] MEDS: PANTOprazole SOD 40 MG TAB PO SCH (07:50)
[2016-11-07] MEDS: TAMSULOSIN HCL 0.4 MG CAP PO SCH (07:50)
[2016-11-07] MEDS: PSYLLIUM 58.6% PWD PACK S\\F PO SCH (07:51)
[2016-11-07 08:00] VITALS: O2SAT 93
[2016-11-07 08:04] LABS: BUN/CREATININE RATIO 13.3 (10-20); CALCIUM 9.1 mg/dl (8.5-10.1); CREATININE 0.73 mg/dl (0.60-1.20); MAGNESIUM 1.8 mg/dl (1.8-2.4); POTASSIUM 3.8 mmol/L (3.5-5.1)
[2016-11-07 08:09] VITALS: BP 142/68; PULSE 80; TEMP 37; O2SAT 94
[2016-11-07 11:25] VITALS: BP 157/84; PULSE 60; TEMP 36.6; O2SAT 96
[2016-11-07] MEDS ORDERED: VANCOMYCIN TROUGH SCH (11:30)
[2016-11-07 15:17] VITALS: BP 118/67; PULSE 67; TEMP 36.8; O2SAT 96
--- NOTE | 2016-11-07 20:48 | Progress Note ---
Internal Med Progress Note Date of Service: Nov 07, 2016. Provider Documentation: SUBJECTIVE: no fever or chills feels much better no abdominal pain OBJECTIVE: Vital Signs-as noted below Exam: General-elderly female, no apparent sign of distress Eyes-sclera non icteric ENT-moist oral mucosa Neck-trachea midline, no thyromegaly Lungs-CTA, no wheeze or rales Heart-regular Abdomen-soft, non tender Extremities-no rash or deformity Neuro-no focal neurological deficit Lab data as noted below. ASSESSMENT & PLAN: SEVERE SEPSIS resolved due to obstructed rt ureteric stone /UTI /pyelonephritis met criteria on admission -marked leukocytosis, tachycardia, elevated lactic acid Urine , blood culture ordered blood culture no growth urine culture growing E Coli -suarez sensitive Abx changed to Ciprofloxacin PO need total 14 days tx white count improved to 32-> 14-> 11 today no fever or chills normal lactic acid , renal function stable to be discharged home tomorrow with PO abx appreciate Urology help s/p rt ureteric stent placement for obstructed uropathy out pt Urology follow up next weeks ( Tuesday11/10/16 ) for removal of ureteric stone and stent LACTIC ACIDOSIS : normal level today resolved with IV fluids mild lipase elevation due to sepsis , nausea /vomiting resolved with IV hydration RUQ -no liver /gall bladder /pancreatic pathology diet advanced tolerating well IVF D/panfilo MARKED LEUKOCYTOSIS : resolved due to above -UTi . infected ureteric stone /sepsis -due to E.Coli UTI WBC 25 k0> 32 K -> 18 K -> 14 -> 11 K today with marked left shift Peripheral film shows mostly neutrophils with left shift , toxic granules- suggestive of infectious process no malignant cell seen appreciate ID eval -complete total 14 days of PO Abx DVT PROPHYLAXIS scd and teds avoid anticoagulation for recent ureteric procedure DNR/DNI DISPOSITION discharge to home tomorrow Vital Signs: Date Time Temp Pulse Resp B/P Pulse Ox O2 Delivery O2 Flow Rate FiO2 11/07/16 16:14 Room Air 11/07/16 15:17 36.8 67 16 118/67 96 Room Air 11/07/16 11:25 36.6 60 20 157/84 96 Room Air 11/07/16 08:09 37.0 80 18 142/68 94 Room Air 11/07/16 08:00 93 Room Air 11/07/16 00:00 Room Air 11/06/16 23:24 36.8 74 16 128/62 94 Room Air Lab Results: Results Past 24 Hours Test 11/07/16 07:17 Range/Units White Blood Count 11.57 4.8-10.8 K/uL Red Blood Count 4.43 4.2-5.4 M/uL Hemoglobin 12.9 12.0-16.0 g/dL Hematocrit 38.1 37-47 % Mean Corpuscular Volume 86.0 80-100 fL Mean Corpuscular Hemoglobin 29.1 25-34 pg Mean Corpuscular Hemoglobin Concent 33.9 32-36 g/dl RDW Standard Deviation 46.6 36.4-46.3 fL RDW Coefficient of Variation 14.8 11.5-14.5 % Platelet Count 221 130-400 K/uL Mean Platelet Volume 10.5 7.4-10.4 fL Sodium Level 144 136-145 mmol/L Potassium Level 3.8 3.5-5.1 mmol/L Chloride Level 115 98-107 mmol/L Carbon Dioxide Level 20 21-32 mmol/L Anion Gap 9.0 3-11 mmol/L Blood Urea Nitrogen 10 7-18 mg/dl Creatinine 0.73 0.60-1.20 mg/dl Est Creatinine Clear Calc Drug Dose 48.2 ml/min Estimated GFR () 86.4 Estimated GFR (Non- 74.6 BUN/Creatinine Ratio 13.3 10-20 Random Glucose 99 70-99 mg/dl Lactic Acid Level 1.7 0.4-2.0 mmol/L Calcium Level 9.1 8.5-10.1 mg/dl Magnesium Level 1.8 1.8-2.4 mg/dl
[2016-11-07 23:27] VITALS: BP 143/78; PULSE 75; TEMP 36.6; O2SAT 95
[2016-11-08 07:11] VITALS: BP 146/77; PULSE 67; TEMP 37.4; O2SAT 96
[2016-11-08 07:12] VITALS: BP 149/73; PULSE 70; TEMP 36.5; O2SAT 92
[2016-11-08 07:30] LABS: HEMATOCRIT 38.2 % (37-47); MEAN CELL VOLUME 84.9 fL (80-100); MEAN CORPUSCULAR HEMOGLOBIN 28.2 pg (25-34); MEAN CORPUSCULAR HGB CONC 33.2 g/dl (32-36); MEAN PLATELET VOLUME 10.3 fL (7.4-10.4); PLATELET COUNT 216 K/uL (130-400); WHITE BLOOD COUNT 8.82 K/uL (4.8-10.8)
[2016-11-08 07:58] LABS: BUN/CREATININE RATIO 11.4 (10-20); CALCIUM 8.9 mg/dl (8.5-10.1); CREATININE 0.66 mg/dl (0.60-1.20); MAGNESIUM 1.8 mg/dl (1.8-2.4); POTASSIUM 3.4 mmol/L (3.5-5.1)
[2016-11-08] MEDS: PSYLLIUM 58.6% PWD PACK S\\F PO SCH (09:00)
[2016-11-08] MEDS: PANTOprazole SOD 40 MG TAB PO SCH (09:18)
[2016-11-08] MEDS: CIPROFLOXACIN 500 MG TAB PO SCH (09:18)
[2016-11-08] MEDS: TAMSULOSIN HCL 0.4 MG CAP PO SCH (09:21)
[2016-11-08] MEDS ORDERED: ONDA8TAB62 SL (13:35)
[2016-11-08] MEDS ORDERED: POTASSIUM CHLORIDE 10 MEQ TABCR PO ONE (13:45)
[2016-11-08] MEDS ORDERED: ONDANSETRON 4MG OD TAB PO PRN (13:45)
[2016-11-08 14:00] VITALS: BP 128/66; PULSE 85; TEMP 36.6; O2SAT 94
[2016-11-08 14:29] VITALS: BP 149/73; PULSE 70; TEMP 36.5; O2SAT 92
--- NOTE | 2016-11-08 16:30 | Discharge Summary ---
Discharge Summary Admission Date: Nov 04, 2016 at 09:27 Discharge Date: Nov 08, 2016 Discharge Disposition: Home Principal Diagnosis: SEVERE SEPSIS /UTI /OBSTRUCTED URETERIC STONE Procedures: CYSTOSCOPY , URETERIC STENT PLACEMENT Consultations: UROLOGY DR OCHOA ID Pending Studies/Follow-Up: Instructions / Follow-Up HOSPITAL FOLLOW UP WITH DR Loretta Duque DO ( DR MINAYA IS OUT OF OFFICE ) ON 11/12/2016 @ 1:30 PM [facility] UROLOGY FOLLOW UP WITH DR OCHOA ON Tuesday11/10/15 FOR RT URETERIC STONE AND STENT REMOVAL ; OFFICE WILL CALL WITH APPOINTMENT Medication Reconciliation New Medications: Ondansetron Odt (Zofran Odt) 8 Mg Soltab 8 MG SL Q6H PRN for Nausea for 30 Days, #90 TAB 5 Refills Ciprofloxacin (Ciprofloxacin HCl) 250 Mg Tab 500 MG PO Q12H for 10 Days, #40 TAB Tamsulosin HCl (Tamsulosin HCl) 0.4 Mg Cap 0.4 MG PO QAM for 14 Days, #14 CAP 5 Refills Continued Medications: Atenolol (Tenormin) 50 Mg Tab 25 MG PO DAILY, 0 Refills Meclizine Hcl (Antivert) 25 Mg Tab 25 MG PO TID PRN, TAB NEEDED FOR DIZZINESS Omeprazole (Prilosec) 20 Mg Capcr 20 MG PO DAILY, CAP Simvastatin (Zocor) 20 Mg Tab 20 MG PO QPM, 0 Refills Referrals At Discharge Follow up Referrals: Physician Referral - 11/10/16 with Linn Ochoa MD Admission Information HPI (per Admitting provider): This is an 86 y/o female with PMHx of HTN, Dyslipidemia and other problems as outlined below who presents to the ED c/o R flank pain that began early this morning. Pt reports that she woke up around 0330 with R flank pain that she describes as constant 6/10 pain that radiates to the R groin. Her sxs are assoc with mild nausea. She mentions she had a GI bug last week with N/V and diarrhea however she her sxs resolved over a week ago. She has a history of kidney stones requiring lithotripsy in the past. Pt denies fever/chills, diaphoresis, chest pain, palpitations, SOB, wheezing, abd pain, vomiting, constipation, diarrhea, dysuria, hematuria, urinary frequency, LE edema ,calf pain, lightheadedness/dizziness. In the ED, vitals are stable. Pt is afebrile with leukocytosis >25k. K+ 2.9. lipase 400. UA 3+ bacteria, + nitrites and + blood. CT abd/pelvis + obstructing 7mm calculi in distal R ureter with resulting mod- severe hydroureteronephrosis. Pt received IVF and IV abx in the ED. She appears hemodynamically stable. She will be admitted for further evaluation and treatment. Physical Exam (per Admitting): General Appearance: WD/WN, no apparent distress, + pertinent finding (Pt is laying in bed with son-in-law at bedside ) Head: normocephalic, atraumatic Eyes: normal inspection ENT: hearing grossly normal Neck: supple Respiratory/Chest: chest non-tender, lungs clear, normal breath sounds, no respiratory distress Cardiovascular: regular rate, rhythm, no edema, no murmur Abdomen/GI: normal bowel sounds, non tender, soft Back: + right CVA tenderness Extremities/Musculoskelatal: normal inspection, no calf tenderness, no pedal edema Neurologic/Psych: alert, normal mood/affect, oriented x 3 Skin: normal color, warm/dry Hospital Course SEVERE SEPSIS resolved due to obstructed rt ureteric stone /UTI /pyelonephritis met criteria on admission -marked leukocytosis, tachycardia, elevated lactic acid Urine , blood culture ordered blood culture no growth urine culture growing E Coli -suarez sensitive Abx changed to Ciprofloxacin PO need total 14 days tx leukocytosis resolved 32-> 14-> 11-> 8 today no fever or chills normal lactic acid , renal function stable to be discharged home today with PO abx appreciate Urology help s/p rt ureteric stent placement for obstructed uropathy out pt Urology follow up next weeks ( Tuesday11/10/16 ) for removal of ureteric stone and stent LACTIC ACIDOSIS : normal level resolved with IV fluids mild lipase elevation due to sepsis , nausea /vomiting resolved with IV hydration RUQ -no liver /gall bladder /pancreatic pathology diet advanced tolerating well MARKED LEUKOCYTOSIS : resolved due to above -UTi . infected ureteric stone /sepsis -due to E.Coli UTI WBC 25 k0> 32 K -> 18 K -> 14 -> 11 K _< 8 Peripheral film shows mostly neutrophils with left shift , toxic granules- suggestive of infectious process no malignant cell seen appreciate ID eval -complete total 14 days of PO Abx DVT PROPHYLAXIS scd and teds avoid anticoagulation for recent ureteric procedure DNR/DNI DISPOSITION discharge to home today Total time spent on discharge = 40 UT NS This includes examination of the patient, discharge planning, medication reconciliation, and communication with other providers. Discharge Instructions DI: Medical v4 Discharge Instructions Admission Reason for Admission: Renal And Ureteric Calculus Discharge Discharge Diagnosis / Problem: SEVERE SEPSIS /UTI /OBSTRUCTED URETERIC STONE Discharge Goals Goal(s): Decrease discomfort, Improve disease control, Diagnostic testing, Therapeutic intervention Activity Recommendations Activity Limitations: resume your previous activity . Instructions / Follow-Up Instructions / Follow-Up HOSPITAL FOLLOW UP WITH DR Loretta Duque DO ( DR MINAYA IS OUT OF OFFICE ) ON 11/12/2016 @ 1:30 PM [facility] UROLOGY FOLLOW UP WITH DR OCHOA ON Tuesday11/10/15 FOR RT URETERIC STONE AND STENT REMOVAL ; OFFICE WILL CALL WITH APPOINTMENT Current Hospital Diet Patient's current hospital diet: Regular Diet Discharge Diet Recommended Diet: Regular Diet Procedures Procedures Performed: Cystosocpy, Ureteral Stent Insertion Right Pending Studies Studies pending at discharge: yes List of pending studies: CYSTOSCOPY , URETERIC STONE AND STENT REMOVAL Medical Emergencies . Who to Call and When: Medical Emergencies: If at any time you feel your situation is an emergency, please call 911 immediately. . Non-Emergent Contact Non-Emergency issues call your: Primary Care Provider . . "Provider Documentation" section prepared by Lucia Lara. VTE Core Measure Inpt VTE Proph given/why not?: Marcie Yap, SCD's [place] Drug Monitoring Program Search Results: no issues identified Additional Copies To Merlyn Ward D.O. Simmons, Jennifer ., MD
[2016-11-09] MEDS ORDERED: ATEN25TA PO (12:31)
[2016-11-09] MEDS ORDERED: MULT-506 PO (12:31)
[2016-11-09] MEDS ORDERED: CIPR1TAB10 PO (12:31)
[2016-11-09] MEDS ORDERED: ONDA8TAB62 SL (12:31)
[2016-11-10] MEDS ORDERED: TAMS0.4C38 PO ×2 (07:51→09:52)
== END 2016-11-08 16:31 | disposition home or self-care (01) | DRG 872 ==
LOC: ENRESERVTM → ENRESERVDT → EDBD 07:26 → C.EDB 07:27 → C.MS2W 09:27 → C.MED 11:42
PROVIDERS: ADMIT Hospitalist; ATTEND Hospitalist
PROC: 0T768DZ Dilation of Right Ureter with Intraluminal Device, Via Natural or Artificial Opening Endoscopic (ICD-10-PCS; principal; 2016-11-04 15:30)
DX: A41.51 Sepsis due to Escherichia coli [E. coli] (principal); E87.2 Acidosis; N12 Tubulo-interstitial nephritis, not specified as acute or chronic; N13.2 Hydronephrosis with renal and ureteral calculous obstruction; R65.20 Severe sepsis without septic shock; E86.0 Dehydration; E87.6 Hypokalemia; I10 Essential (primary) hypertension; M81.0 Age-related osteoporosis without current pathological fracture; Z66 Do not resuscitate; B96.20 Unspecified Escherichia coli [E. coli] as the cause of diseases classified elsewhere; E78.00 Pure hypercholesterolemia, unspecified; E78.5 Hyperlipidemia, unspecified; D72.829 Elevated white blood cell count, unspecified; R74.8 Abnormal levels of other serum enzymes; R19.7 Diarrhea, unspecified; R11.2 Nausea with vomiting, unspecified; J32.4 Chronic pansinusitis; R06.83 Snoring; Z79.899 Other long term (current) drug therapy

== ENCOUNTER 2016-11-10 07:06 | Day surgery (SDC) | payer OTHER, MEDICARE ==
[~2016-11-10] VITALS: Ht 152.4 cm; Wt 69.5 kg
[~2016-11-10 07:06] MED LIST changes: -ACET-1256 PO; +ATEN25TA PO; -ATEN50TA8 PO; -CHOL100027 PO; +CIPR1TAB10 PO; -COEN100C15 PO; -FLUT0.15 NAE; +LACTATED RINGER'S 1000ML 1,000 ML IV SCH; -LORA10TA44 PO; -MECL25TA2 PO; +ONDA8TAB62 SL; -POLYSOL4 OP; -PRLSR20 PO; -PROB1TAB16 PO; -PSYL58.611 PO
[2016-11-10] MEDS ORDERED: EpHEDrine SULFATE INJ 50 MG/ML AMP IV PRN (07:30)
[2016-11-10] MEDS ORDERED: ATROPINE SULFATE 0.1 MG/ML 5ML SYR IV PRN (07:30)
[2016-11-10] MEDS ORDERED: FENTANYL CITRATE INJ 50 MCG/1 ML 2 ML VIAL IV PRN (07:30)
[2016-11-10] MEDS ORDERED: ONDANSETRON INJ 2 MG/ML 2 ML VIAL IV PRN (07:30)
[2016-11-10] MEDS ORDERED: PRLSR20 PO (07:38)
[2016-11-10] MEDS ORDERED: FENTANYL CITRATE INJ 50 MCG/1 ML 2 ML VIAL ONE (07:47)
[2016-11-10] MEDS ORDERED: MECL1TAB42 PO (07:50)
[2016-11-10] MEDS ORDERED: TAMS0.4C38 PO ×2 (07:51→09:52)
--- NOTE | 2016-11-10 07:52 | History and Physical ---
History Date of Service: Nov 10, 2016. Chief Complaint: right ureteral and renal stones Primary Care Physician: Merlyn Ward D.O. Pt seen a urologist before?: Yes If yes, why?: stones History of Present Illness Patient presents for stone surgery. She presented with obstructing right ureteral stone and renal stones and severe UTI one wek ago. she was urgently stented 8 days ago. She had broad spectrum iv abt then sent home 5 days later on oral cipro having normalized her white count. She feels well. Imaging CT Laboratory Labs were reviewed and are within normal limits unless listed below. Labs are available in the chart and at [facility] Problem List Medical Problems: (1) Kidney stone Status: Acute Past History Past Medical History: high cholesterol, hypertension Past Surgical History: tonsillectomy Family History Hypertension Kidney disease Kidney stones not relevant at her age Social History Hx Tobacco Use In Past Year?: No Smoking: non-smoker Alcohol: never Drug use: none Marital status: Housing status: lives alone Occupation status: retired, other Immunizations History of Influenza Vaccine: Yes History of Tetanus Vaccine?: Yes History of Pneumococcal: Yes History of Hepatitis B Vaccine: No History of MDRO No Allergies Coded Allergies: Amoxicillin (Verified Adverse Reaction, Unknown, nauseated, 11/10/16) Clavulanic Acid (Verified Adverse Reaction, Unknown, nauseated, 11/10/16) Clindamycin (Verified Adverse Reaction, Unknown, GI SYMPTOMS, 11/10/16) Medications Home Medications: Home Meds and Scripts Medications Dose Route/Sig Max Daily Dose Days Date Category Prilosec (Omeprazole) 20 Mg Capcr 20 Mg PO DAILY PRN 11/10/16 Reported Multivitamin (Multivitamins) Tab 1 Tab PO QAM 11/09/16 Reported Zofran Odt (Ondansetron HCl) 8 Mg Soltab 8 Mg SL Q6H PRN 11/09/16 Reported Cipro (Ciprofloxacin Hcl) 500 Mg Tab 500 Mg PO BID 11/09/16 Reported Tenormin (Atenolol) 25 Mg Tab 25 Mg PO QAM 11/09/16 Reported Zocor (Simvastatin) 20 Mg Tab 20 Mg PO QPM 04/12/10 Reported Inpatient Medications: Current Inpatient Medications Medications (Trade) Dose Ordered Sig/Davida Route Start Time Stop Time Status Last Admin Dose Admin Lactated Ringer's (Lr 1000ml) 1,000 ml @ 15 mls/hr Q24H IV 11/10/16 06:00 11/11/16 05:59 Fentanyl Citrate (Fentanyl Inj) 25 mcg Q5M PRN IV 11/10/16 07:30 11/10/16 12:30 Ondansetron HCl (Zofran Inj) 4 mg ONE PRN IV 11/10/16 07:30 11/10/16 12:30 Ephedrine Sulfate (EpHEDrine SULFATE INJ) 5 mg Q5M PRN IV 11/10/16 07:30 11/10/16 12:30 Atropine Sulfate (Atropine Sulfate 0.1MG/Ml Inj) 0.5 mg Q1M PRN IV 11/10/16 07:30 11/10/16 12:30 Review of Systems Review of Systems Constitutional: + chills, + fever, No weight loss Neurological: No dizzy, No passing out Gastrointestinal: + abdominal pain, + diarrhea, + indigestion, + nausea, + vomiting, No constipation Cardiovascular: No chest pain, No heart murmur, No palpitations, No swelling ankles/feet Respiratory: No chronic cough, No shortness of breath Female : + frequent urination, + infections, + kidney stones, + painful urination Physical Exam Physical Exam: General Appearance: WD/WN, no apparent distress, + obese Eyes: bilateral eyes normal inspection ENT: hearing grossly normal Neck: no adenopathy Respiratory/Chest: lungs clear, normal breath sounds, no respiratory distress, no accessory muscle use Cardiovascular: regular rate, rhythm, no edema Extremities: non-tender, normal inspection, no pedal edema, no calf tenderness Neurologic/Psychiatric: alert, normal mood/affect, oriented x 3 Skin: normal color, warm/dry, no rash Lymphatic: no adenopathy Assessment & Plan Assessment & Plan right ureteral and renal stones with uti we plan right ureteroscopy laser litho basket stone extraction stent exchange we think the stone is infected we plan cipro orally pre-op home today and stent removal next week in office.
[2016-11-10 07:58] VITALS: BP 122/52; PULSE 65; TEMP 37; O2SAT 95; Ht 152.4 cm; Wt 69.5 kg
[2016-11-10] MEDS ORDERED: CIPROFLOXACIN 500 MG TAB PO SCH (08:00)
[2016-11-10] MEDS ORDERED: EpHEDrine SULFATE 50MG/5ML SYR ONE (08:33)
[2016-11-10] MEDS ORDERED: LIDOCAINE HCL 2% 2 ML VIAL (20MG/ML) ONE (08:33)
[2016-11-10] MEDS ORDERED: ONDANSETRON INJ 2 MG/ML 2 ML VIAL ONE (08:33)
[2016-11-10] MEDS ORDERED: PROPOFOL IV EMULSION 10 MG/ML 20 ML VIAL IV ONE (08:33)
[2016-11-10] MEDS ORDERED: DEXAMETHASONE SOD INJ 4 MG/ML VIAL ONE (08:33)
[2016-11-10] MEDS ORDERED: BELLADONNA/OPIUM SUPP 60 MG SUPP PR ONE (09:23)
[2016-11-10] MEDS ORDERED: BELLADONNA/OPIUM 60 MG SUPP PR ONE (09:34)
--- NOTE | 2016-11-10 09:50 | [facility] Operative Report ---
Operative Report Operative Date Nov 10, 2016. Pre-Operative Diagnosis Right ureteral and renal stones with urinary tract infection Post-Operative Diagnosis same Procedure(s) Performed cysto right ureteroscope laser lithotripsy basket stone extraction stent exchange Surgeon Dr. Linn Apple Vessel Builder Surgeon(s) None Estimated Blood Loss 3mL Findings radio-opaque right ureteral and renal stones Specimens A. Right ureteral and renal stones for analysis Drains 6 fr 24 centimeter double J stent Anesthesia LMA Complication(s) None Disposition Recovery Room / PACU Indications UTI and obstructing right ureteral stone urgently stented last week. She presents for stone removal Description of Procedure Patient was sedated and placed in lithotomy position. Her genitals were prepped and draped in sterile fashion. Time out held with team. I placed a 21 fr rigid cystoscope to bladder. The urethra is unremarkable. The bladder shows a resolving cystitis with some cystitis cystica type lesions throughout but no debris and no diffuse erythema. The stent on right has some mucous adhering to it. The UOs are normal. I grasped the stent tip and withdrew it to the meatus. I placed a stiff wire up right ureter thru the stent to the right kidney with fluoro guidance. I removed stent and found it to be intact. I placed a second wire and then a 20 centimeter 12/14 ureteral access sheath to just below the right mid ureteral stone. I placed a flex ureteroscope into ureter and used a 200 micron holmium laser to fragment the ureteral stone into pieces. I used a 2.4 fr zerotip basket to remove all ureteral fragments. I removed scope and via a second wire advanced the ureteral access sheath to upper ureter with its stylet. I then placed the scope to the right kidney. I lasered a lower pole large stone into pieces and removed them. I removed 2 medium stone adherent to prince's plaques. I then entered a lower pole tight infundibulum to grasp a medium stone and remove it into the renal pelvis. I fragmented this stone with laser and removed the pieces. I removed scope and sheath. I then placed a 24 centimeter 6 Fr double J stent easily. There is brisk efflux after placement. I left bladder empty and concluded case. I placed a belladonna and opium suppository for post-op pain. She transferred to recovery under my escort, in stable condition. Plan: Home today Pyridium for dysuria x 3 days flomax daily if needed for stent or kidney pain oral pain meds as needed cipro for another 8 days stent out in office next week ASA 3 dirty case 14 seconds fluoro cipro antibiotic contracts specialist I attest to the content of the Intraoperative Record and any orders documented therein. Any exceptions are noted below.
--- NOTE | 2016-11-10 09:52 | DIAGNOSTIC IMAGING REPORT ---
FLUOROSCOPIC IMAGES FROM RIGHT RETROGRADE EXAM WITH LITHOTRIPSY AND STENT INSERTION CLINICAL HISTORY: Right sided lithotripsy and stent placement. COMPARISON STUDY: CT of the abdomen and pelvis November 04, 2016 and retrograde exam November 04, 2016. FLUOROSCOPY TIME: 14 seconds. FINDINGS: These images demonstrate cannulation of the right ureter with subsequent placement of a right ureteral stent. Right renal calculi and a possible calculus within the right renal pelvis are noted. Distal aspect of the stent projects over the bladder. A right pelvic density represents a phlebolith. IMPRESSION: Fluoroscopic images demonstrating placement of a right ureteral stent. Electronically signed by: Sha Mims M.D. 11/10/2016 9:51 AM
--- NOTE | 2016-11-10 09:54 | Discharge Instructions ---
Discharge Instructions Admission Reason for Admission: Kidney Stone Discharge Discharge Diagnosis / Problem: kidney stone ureteral stone and uti Discharge Goals Goal(s): Improve function, Improve disease control Activity Recommendations Activity Limitations: resume your previous activity Lifting Limitations: none Exercise/Sports Limitations: none Shower/Bathe: no limitations Driving or Machine Use: resume 1 day after discharge . Instructions / Follow-Up Instructions / Follow-Up expect blood in urine for several days call with fever or feeling weak drink extra fluids for next 2 weeks we will remove stent in office next week use pyridium if needed for urinary burning use tamsulosin daily if having stent or kidney pain use tylenol for mild or moderate pain, use narcotic for severe pain Discharge Diet Recommended Diet: Regular Diet Fluid Restriction: None Procedures Procedures Performed: Cystoscopy, right ureteroscopy with laser lithotripsy, basket stone extraction, right ureteral stent exchange Pending Studies Studies pending at discharge: no Medical Emergencies . Who to Call and When: Medical Emergencies: If at any time you feel your situation is an emergency, please call 911 immediately. . Non-Emergent Contact Non-Emergency issues call your: Urologist Call Non-Emergent contact if: temperature is above 100.5 . . "Provider Documentation" section prepared by Linn Apple. VTE Core Measure Inpt VTE Proph given/why not?: SCD's
--- NOTE | 2016-11-10 09:57 | Anesthesiology Progress Note ---
Anesthesia Post Op Note Date & Time Nov 10, 2016 at 09:56 Vital Signs Pain Intensity: 0 Vital Signs Past 12 Hours Date Time Temp Pulse Resp B/P Pulse Ox O2 Delivery O2 Flow Rate FiO2 11/10/16 09:40 36.1 79 18 137/55 99 Mask 10 11/10/16 07:58 37 65 18 122/52 95 Room Air Notes Mental Status: alert / awake / arousable, participated in evaluation Pt Amnestic to Procedure: Yes Nausea / Vomiting: adequately controlled Pain: adequately controlled Airway Patency, RR, SpO2: stable & adequate BP & HR: stable & adequate Hydration State: stable & adequate Anesthetic Complications: no major complications apparent
[2016-11-10 10:25] VITALS: BP 140/62; PULSE 68; TEMP 36.4; O2SAT 95
[2016-11-10 10:55] VITALS: BP 145/68; PULSE 70; O2SAT 94
[2016-11-10 11:15] VITALS: BP 147/66; PULSE 69; TEMP 36.3; O2SAT 95
== END 2016-11-10 11:19 | disposition home or self-care (01) ==
LOC: C.ACU 07:06
PROVIDERS: ATTEND Urology
DX: N20.2 Calculus of kidney with calculus of ureter (principal); Z46.6 Encounter for fitting and adjustment of urinary device; N39.0 Urinary tract infection, site not specified; E78.00 Pure hypercholesterolemia, unspecified; I10 Essential (primary) hypertension; Z98.890 Other specified postprocedural states; Z82.49 Family history of ischemic heart disease and other diseases of the circulatory system; Z84.1 Family history of disorders of kidney and ureter; Z88.1 Allergy status to other antibiotic agents; Z88.8 Allergy status to other drugs, medicaments and biological substances